=== PATIENT | female | born 1935 | race Caucasian/White ===

== ENCOUNTER 2017-02-16 08:05 | Day surgery (SDC) | payer MEDICARE, OTHER ==
--- NOTE | 2017-02-11 11:00 | HISTORY AND PHYSICAL E ---
History and Physical NAME: MEAGAN ZUNIGA : 1935 AGE: 81Y ADMITTED: 02/16/2017 ROOM: CHIEF COMPLAINT: Rectal bleeding. PLAN: Flexible sig. HISTORY: Patient is being followed by Dr. Nassar from 2007 where she did have colonoscopy showing descending colon diverticulosis, severe, small benign polyps in the ascending colon, 3 mm. Patient did have a small polyp in the ascending colon. Patient presents with rectal bleeding. Another colonoscopy in 2010 showed adenoma polyp, ascending colon. Patient did have colonoscopy in 2010 showing no malignancy, sessile polyp resected by biopsy, sigmoid diverticulosis. CEA is normal. ALLERGIES: 1. CODEINE. 2. ASPIRIN. PAST SURGERY: Hysterectomy, , thyroidectomy, tonsillectomy as a child. PHYSICAL EXAMINATION: VITAL SIGNS: Blood pressure is 130/70, pulse 80, respirations 18, temp is 98. HEENT: Normal. NECK: Supple. LUNGS: Clear. ABDOMEN: Soft. NEUROLOGIC: Exam is negative. CONCLUSION: Rectal bleeding. PLAN: Flexible sig scheduled for 02/16/2017. DICTATING PHYSICIAN: TERESA MASTERS M.D. [id number] PHY#: [id number] ID: [id number] JOB#: [id number] ACCT: [id number] cc:TERESA MASTERS M.D. >
[~2017-02-16 08:05] MED LIST: EPINEPHRINE INJ 1 MG/10 ML DISP.SYRIN ONE; FLUMAZENIL INJ 0.5 MG/5 ML VIAL ONE; GLUCAGON,HUMAN RECOMB 1 MG INJ ONE; GLYCOPYRROLATE INJ 0.4 MG/2 ML VIAL ONE; LIDOCAINE 2% JELLY 30 ML TUBE ONE; MIDAZOLAM 2 MG/2 ML INJ ONE; NALOXONE HCL INJ/PF 0.4 MG/1 ML SDV ONE; ONDANSETRON HCL INJ/PF 4 MG/2 ML SDV ONE
[2017-02-16] MEDS: FENTANYL CITRATE INJ/PF 100 MCG/2 ML AMPUL ONE ×2 (09:08→09:10)
[2017-02-16 10:14] LABS: ABSOLUTE BASOPHILS # (AUTO) 0.1 10^3/uL (0.0-0.2); ABSOLUTE EOSINOPHILS # (AUTO) 0.1 10^3/uL (0.0-0.6); ABSOLUTE LYMPHOCYTES (AUTO) 0.8 10^3/uL (0.5-4.7); ABSOLUTE MONOCYTES (AUTO) 0.4 10^3/uL (0.1-1.4); BASOPHILS % (AUTO) 2.3 % (0-2); EOSINOPHILS % (AUTO) 4.1 % (0-6); HEMATOCRIT 34.3 % (36.0-47.0); HEMOGLOBIN 11.8 g/dL (12.0-15.5); HGB HCT DIFFERENCE 1.1; LYMPHOCYTES % (AUTO) 23.5 % (13-45); MEAN CORPUSCULAR HEMOGLOBIN 32.4 pg (27.0-33.4); MEAN CORPUSCULAR HGB CONC 34.5 g/dL (32.0-36.0); MEAN CORPUSCULAR VOLUME 94 fl (80-97); MONOCYTES % (AUTO) 12.6 % (3-13); RED BLOOD COUNT 3.65 10^6/uL (3.72-5.28); RED CELL DISTRIBUTION WIDTH 12.6 % (11.5-14.0); SEGMENTED NEUTROPHILS % (AUTO) 57.5 % (42-78); WHITE BLOOD COUNT 3.4 10^3/uL (4.0-10.5)
[2017-02-16 10:16] VITALS: BP 105/78
[2017-02-16] MEDS ORDERED: GLUCAGON,HUMAN RECOMB 1 MG INJ ONE (10:56)
--- NOTE | 2017-02-16 12:34 | DISCHARGE SUMMARY E ---
Discharge Summary NAME: MEAGAN ZUNIGA : 1935 AGE: 81Y ADMITTED: 02/16/2017 DISCHARGED: 02/16/2017 SUMMARY: Patient is 81, presented with rectal bleeding. She did have previous colonoscopy showing adenoma polyp in the ascending colon, 2 mm, removed by biopsy. Today's flexible sig shows no active bleeding, external hemorrhoids, diverticulosis in the sigmoid and descending colon. DISCHARGE PLAN: 1. Soft diet. 2. Baseline CBC and CEA. 3. Follow-up office visit in the next few days. DICTATING PHYSICIAN: TERESA MASTERS M.D. [id number] PHY#: [id number] ID: [id number] JOB#: [id number] ACCT: [id number] cc:TERESA MASTERS M.D. >
--- NOTE | 2017-02-16 12:37 | OPERATIVE REPORT E ---
Operative Report NAME: MEAGAN ZUNIGA : 1935 AGE: 81Y DATE OF SURGERY: 02/16/2017 ROOM: PREOPERATIVE DIAGNOSIS: Rectal bleeding. POSTOPERATIVE DIAGNOSES: 1. External hemorrhoids most likely the cause of the bleed, mild, multiple. 2. Sigmoid diverticulosis. OPERATION: Flexible sig. SURGEON: TERESA MASTERS M.D. ANESTHESIA: Patient was given 2 Versed and 50 fentanyl. PROCEDURE: Rectal exam: External hemorrhoids. Most likely the cause of the bleed. Rectum normal otherwise. Sigmoid diverticulosis. Descending colon diverticulosis. There was a solid brown stool in the descending colon. No active bleeding. No polyps were seen during the flexible. PLAN: Assurance. Soft diet. Watch hemorrhoids. Watch diverticulosis. Baseline CBC and CEA. DICTATING PHYSICIAN: TERESA MASTERS M.D. [id number] PHY#: [id number] ID: [id number] JOB#: [id number] ACCT: [id number] cc:TERESA MASTERS M.D. >
== END 2017-02-16 10:15 | disposition home or self-care (01) ==
LOC: END 08:05
PROVIDERS: ATTEND Specialist
PROC: 0DJD8ZZ Inspection of Lower Intestinal Tract, Via Natural or Artificial Opening Endoscopic (ICD-10-PCS; principal; 2017-02-16 09:00)
DX: K57.30 Diverticulosis of large intestine without perforation or abscess without bleeding (principal); K62.5 Hemorrhage of anus and rectum; K64.4 Residual hemorrhoidal skin tags; R97.0 Elevated carcinoembryonic antigen [CEA]; Z88.5 Allergy status to narcotic agent; Z88.6 Allergy status to analgesic agent
CPT/HCPCS: 45330; 36415; 82378; 85025; J2250; J3010; J1610; J2405; J0171; J2310; J3490

== ENCOUNTER 2017-12-28 15:18 | Inpatient (IN) | payer MEDICARE, OTHER ==
[2017-12-28] MEDS ORDERED: NORMAL SALINE 1000 ML 500 ML IV PRN (16:30)
--- NOTE | 2017-12-28 16:31 | ER Document Report ---
ED Medical Screen (RME) - General Information source: Patient TRAVEL OUTSIDE OF THE [place] IN LAST 30 DAYS: No <AKIN MITCHELL - Last Filed: 12/28/17 16:30> - HPI Patient complains to provider of: feeling unwell Onset: Other - 82-year-old female presents for evaluation of feeling unwell, she recently had a bladder removal for bladder cancer and a diverting cystostomy to an ostomy on her abdomen which was performed at [facility] she was admitted to the hospital for abnormal electrolytes and was discharged last Wednesday, 4 days prior, she notes that over the last 2 days she is just felt somewhat unwell. She denies any emesis, she denies any constipation or diarrhea she does note some fevers at home as well as a cough some shortness of breath and some generalized fatigue she has never felt like this before. Nothing is seen to make it any better nothing seemed to make it any worse. <JUNG LINDSAY - Last Filed: 12/29/17 04:37> - General Chief Complaint: Weakness Stated Complaint: WEAKNESS Time Seen by Provider: 12/28/17 16:29 Notes: 52 years old female presents today with general malaise and fatigue weakness since yesterday. Recently she had a complete resection of urinary bladder, due to bladder cancer. Subsequently she was admitted for. Of time for hyponatremia and hypokalemia. Discharge last week from the hospital. (AKIN MITCHELL) - Related Data Allergies/Adverse Reactions: aspirin [Aspirin] Allergy (Intermediate, Verified 02/16/17 08:16) lowers iron codeine [Codeine] Allergy (Intermediate, Verified 02/16/17 08:16) lowers iron Past Medical History - Past Medical History Cardiac Medical History: Reports: Hx Hypertension Denies: Hx Coronary Artery Disease, Hx Heart Attack Pulmonary Medical History: Denies: Hx Asthma, Hx Bronchitis, Hx COPD, Hx Pneumonia Neurological Medical History: Denies: Hx Cerebrovascular Accident, Hx Seizures Musculoskeltal Medical History: Reports Hx Arthritis Past Surgical History: Denies: Hx Hysterectomy, Hx Pacemaker - Immunizations Hx Diphtheria, Pertussis, Tetanus Vaccination: No <AKIN MITCHELL - Last Filed: 12/28/17 16:30> - General Information source: Patient - Social History Cigarette use (# per day): No Chew tobacco use (# tins/day): No Frequency of alcohol use: None Drug Abuse: None <JUNG LINDSAY Blanca - Last Filed: 12/29/17 04:37> Review of Systems - Review of Systems -: Yes All other systems reviewed and negative <JUNG LINDSAY Blanca - Last Filed: 12/29/17 04:37> Physical Exam - General General appearance: Appears well In distress: None - HEENT Head: Normocephalic Eyes: Normal Conjunctiva: Normal - Respiratory Respiratory status: No respiratory distress Chest status: Nontender Breath sounds: Normal Chest palpation: Normal - Cardiovascular Rhythm: Regular Heart sounds: Normal auscultation Murmur: No - Abdominal Inspection: Other - The abdomen is rounded, and the right lower quadrant there is a pink Miriam stoma with active drainage of urine in the bag which is relatively clear Distension: No distension Bowel sounds: Normal Tenderness: Nontender - Back Back: Normal - Extremities General upper extremity: Normal inspection General lower extremity: Normal inspection Shoulder: Normal - Neurological Neuro grossly intact: Yes Cognition: Normal Orientation: AAOx4 - Skin Skin Temperature: Warm <JUNG LINDSAY F - Last Filed: 12/29/17 04:37> - Vital signs Vitals: Temp Pulse Resp BP Pulse Ox 100.0 F 99 18 152/51 H 96 12/28/17 15:41 12/28/17 15:41 12/28/17 15:41 12/28/17 15:41 12/28/17 15:41 Course <AKIN MITCHELL - Last Filed: 12/28/17 16:30> - Laboratory Result Diagrams: 12/28/17 18:20 12/28/17 17:02 <JUNG LINDSAY - Last Filed: 12/29/17 04:37> - Re-evaluation Re-evalutation: 12/29/17 04:34 82-year-old female with a history of bladder resection at [facility] for cancer presents for evaluation of generalized feeling of unwell. She previously been hospitalized for abnormal electrolytes and says this feels somewhat similar to that though not quite as bad. She also has had fevers at home or that time. Her urine output is continued to be normal during that time she denies any abdominal pain diarrhea constipation or emesis. She has had a cough and some shortness of breath. Chest x-ray does demonstrate what may be an infiltrate, her urinalysis is difficult to interpret it does come from a diverted ostomy. Laboratory evaluation is nondiagnostic, I have contacted personal development mentor urology attending at [facility] who at this time declines acceptance of patient in transport for treatment as he believes that her urine is not infected her creatinine is improved and her electrolytes are improved as well. Spoke to hospitalist at [facility] on-call Mejia Wahl who notes that patient without urinary tract infection or surgical complication likely is safe to be treated as an inpatient and [place], discussed case with on-call hospitalist Dr. Ricks who declines admission at this time for concern that patient may have a relation to her previous surgery. Because of the prolonged wait. For likely transport after Dr. Holguin who accepted patient for consideration of transport to floor bed have discussed again case with on-call hospitalist Dr. Thayer who agrees to admit the patient while awaiting transfer. During this time initiated treatment for possible aspiration pneumonia which in addition will treat urinary tract infection if positive. We will continue to monitor this patient in the emergency department until she is admitted or transported. At this time she is hemodynamically stable and overall well appearing. ( JUNG LINDSAY) - Vital Signs Vital signs: Temp Pulse Resp BP Pulse Ox 98.7 F 99 26 H 144/54 H 100 12/28/17 21:53 12/28/17 15:41 12/29/17 04:01 12/29/17 04:00 12/29/17 04:01 - Laboratory Laboratory results interpreted by me: 12/28/17 12/28/17 12/28/17 17:02 17:02 17:05 RBC Hgb Hct Plt Count Seg Neutrophils % Lymphocytes % Sodium 131.4 L Chloride 95 L Est GFR ( Amer) 58 L Est GFR (Non-Af Amer) 48 L Calcium 8.2 L Albumin 3.4 L TSH 6.25 H Urine Blood SMALL H Urine Nitrite POSITIVE H Ur Leukocyte Esterase TRACE H 12/28/17 18:20 RBC 3.02 L Hgb 9.6 L Hct 28.4 L Plt Count 598 H Seg Neutrophils % 79.6 H Lymphocytes % 6.7 L Sodium Chloride Est GFR ( Amer) Est GFR (Non-Af Amer) Calcium Albumin TSH Urine Blood Urine Nitrite Ur Leukocyte Esterase
--- NOTE | 2017-12-28 17:26 | RADIOLOGY REPORT (SQ) ---
EXAM DESCRIPTION: CHEST 2 VIEWS COMPLETED DATE/TIME: 12/28/2017 5:12 pm REASON FOR STUDY: cough COMPARISON: None. EXAM PARAMETERS: NUMBER OF VIEWS: two views TECHNIQUE: Digital Frontal and Lateral radiographic views of the chest acquired. RADIATION DOSE: NA LIMITATIONS: none FINDINGS: LUNGS AND PLEURA: Faint density in the right upper lobe situated between the anterior end of the 2nd and 3rd rib. Mild interstitial changes. No large pleural effusion. No pneumothorax. MEDIASTINUM AND HILAR STRUCTURES: No masses or contour abnormalities. HEART AND VASCULAR STRUCTURES: Heart normal size. No evidence for failure. BONES: No acute findings. HARDWARE: None in the chest. OTHER: Large hiatal hernia with intrathoracic stomach. IMPRESSION: 1. FAINT DENSITY IN THE RIGHT UPPER LOBE, POSSIBLY ARTIFACT DUE TO OVERLYING TISSUE. CANNOT EXCLUDE UNDERLYING PARENCHYMAL LESION. MAY CONSIDER FOLLOW-UP CT OF THE CHEST FOR MORE COMPLETE EVALUATION. 2. LARGE HIATAL HERNIA WITH INTRATHORACIC STOMACH. TECHNICAL DOCUMENTATION: JOB ID: [id number] [employer]- All Rights Reserved Reading location - IP/workstation name: [email or web address]
[2017-12-28 17:36] LABS: APPEARANCE,URINE SLIGHTLY-CLOUDY; BILIRUBIN,URINE NEGATIVE (NEGATIVE); COLOR,URINE YELLOW; GLUCOSE, URINE NEGATIVE (NEGATIVE); KETONES,URINE NEGATIVE (NEGATIVE); LEUKOCYTE ESTERASE,URINE TRACE (NEGATIVE); NITRITE,URINE POSITIVE (NEGATIVE); PROTEIN,URINE NEGATIVE (NEGATIVE); URINE SPECIFIC GRAVITY 1.009; UROBILINOGEN,URINE NEGATIVE mg/dL (<2.0)
[2017-12-28 17:58] LABS: ALANINE AMINOTRANSFERASE 16 U/L (9-52); ALBUMIN 3.4 g/dL (3.5-5.0); ALKALINE PHOSPHATASE 57 U/L (38-126); ANION GAP 7 (5-19); ASPARTATE AMINO TRANSFERASE 30 U/L (14-36); BILIRUBIN,DIRECT 0.3 mg/dL (0.0-0.4); BILIRUBIN,TOTAL 0.3 mg/dL (0.2-1.3); BLOOD UREA NITROGEN 20 mg/dL (7-20); CALCIUM 8.2 mg/dL (8.4-10.2); CARBON DIOXIDE 29 mmol/L (22-30); CHLORIDE 95 mmol/L (98-107); GLUCOSE 102 mg/dL (75-110); POTASSIUM 4.1 mmol/L (3.6-5.0); SODIUM 131.4 mmol/L (137-145); TOTAL PROTEIN 7.1 g/dL (6.3-8.2)
[2017-12-28 18:33] LABS: ABSOLUTE BASOPHILS # (AUTO) 0.1 10^3/uL (0.0-0.2); ABSOLUTE EOSINOPHILS # (AUTO) 0.1 10^3/uL (0.0-0.6); ABSOLUTE LYMPHOCYTES (AUTO) 0.6 10^3/uL (0.5-4.7); ABSOLUTE MONOCYTES (AUTO) 1.2 10^3/uL (0.1-1.4); ABSOLUTE NEUT (AUTO) 7.5 10^3/uL (1.7-8.2); BASOPHILS % (AUTO) 0.7 % (0-2); EOSINOPHILS % (AUTO) 0.6 % (0-6); HEMATOCRIT 28.4 % (36.0-47.0); HEMOGLOBIN 9.6 g/dL (12.0-15.5); LYMPHOCYTES % (AUTO) 6.7 % (13-45); MEAN CORPUSCULAR HEMOGLOBIN 31.7 pg (27.0-33.4); MEAN CORPUSCULAR HGB CONC 33.7 g/dL (32.0-36.0); MEAN CORPUSCULAR VOLUME 94 fl (80-97); MONOCYTES % (AUTO) 12.4 % (3-13); PLATELET COUNT 598 10^3/uL (150-450); RED BLOOD COUNT 3.02 10^6/uL (3.72-5.28); RED CELL DISTRIBUTION WIDTH 13.5 % (11.5-14.0); SEGMENTED NEUTROPHILS % (AUTO) 79.6 % (42-78); TOTAL CELLS COUNTED % (AUTO) 100 %; WHITE BLOOD COUNT 9.4 10^3/uL (4.0-10.5)
[2017-12-28] MEDS ORDERED: AMPICILLIN SOD/SULBACTAM 3 GM VIAL IV ONE (21:02)
[2017-12-28] MEDS ORDERED: CEFTRIAXONE INJ 1000 MG VIAL IV ONE (21:15)
[2017-12-29] MEDS ORDERED: ZOLPIDEM TARTRATE 5 MG TABLET PO PRN (00:46)
[2017-12-29] MEDS ORDERED: ONDANSETRON HCL INJ/PF 4 MG/2 ML SDV IV PRN (00:46)
[2017-12-29] MEDS ORDERED: MAGNESIUM HYDROXIDE SUSP 30 ML UDCUP PO PRN (00:46)
[2017-12-29] MEDS ORDERED: ACETAMINOPHEN 650 MG SUPP.RECT PR PRN (00:46)
[2017-12-29] MEDS ORDERED: AZITHROMYCIN INJ 500 MG VIAL IV ONE (01:11)
[2017-12-29] MEDS ORDERED: IPRATROPIUM/ALBUTEROL 0.5-2.5 MG/3 ML AMPUL NEB PRN (01:12)
--- NOTE | 2017-12-29 01:32 | PDOC H&P ---
History of Present Illness Admission Date/PCP: 12/29/2017 FAVIO MILLAN MD Patient complains of: I have been feeling bad History of Present Illness: MEAGAN ZUNIGA is a 82 year old female with history of hypertension, hypothyroidism and dyslipidemia as well as bladder cancer status post recent bladder resection and diverting ileostomy at [facility] at [place] from 12/13 till . She had a stent removal on 12/21 and was noted to be hypotensive with electrolyte disturbances when she was admitted again and discharged on 2017. She has been doing fairly well for a few days however since yesterday she felt general malaise and fatigue and admitted to cough with expectoration of whitish sputum with no wheezing or significant dyspnea. She denies any chest pain or palpitations. She had a bowel movement today that was well formed. She did not have reported fever or chills at home. No headache, dizziness or blurred vision. No nausea vomiting or abdominal pain. Upon presentation to the emergency room her blood pressure was 152/51 with a pulse of 99 respiratory rate of 18 and temperature of 100 with a pulse oximetry of 96% on room air. Labs revealed a anemia with hemoglobin of 9.6 and hematocrit of 28.4 with no recent levels to compare with since January of last year at which time hemoglobin was 11.8 and hematocrit 34.3. Platelets were 598 with segmented neutrophilia with hyponatremia was revealed in her CMP with hypochloremia and her GFR was 48. Lactic acid was 0.7 and calcium 8.2 with albumin 3.4. Urinalysis showed only 11 WBCs however with positive nitrite and trace leukocyte esterase. Her chest x-ray revealed right upper lobe density that could be due to confluence of shadows. The patient was given IV Unasyn and a gram of Rocephin as well as ordered IV Zithromax. Contact was made with [facility] with her urologist, based on her recent couple of admissions during the last couple of weeks especially due to her recent early UTI status post urologic surgery as mentioned above and she was accepted for transfer however there were no beds available and they were not expected in a couple of days. She was thought to be stable for admission here for further management of her UTI and possible pneumonia. Past Medical History Past Medical History: Hypertension, hypothyroidism, dyslipidemia, bladder cancer status post bladder resection and diverting ileostomy and diverticulosis. Cardiac Medical History: Reports: Hypertension Denies: Coronary Artery Disease, Myocardial Infarction Pulmonary Medical History: Denies: Asthma, Bronchitis, Chronic Obstructive Pulmonary Disease (COPD), Pneumonia Neurological Medical History: Denies: Seizures Musculoskeltal Medical History: Reports: Arthritis Hematology: Reports: Anemia Past Surgical History Past Surgical History: Reports: Section, Hysterectomy, Other - Bladder resection and diverting ileostomy, stent removal. Denies: Pacemaker Social History Smoking Status: Never Smoker Frequency of Alcohol Use: None Hx Recreational Drug Use: No Family History Family History: CAD, CVA, Malignancy Parental Family History Reviewed: Yes Children Family History Reviewed: Yes Sibling(s) Family History Reviewed.: Yes Medication/Allergy Home Medications: Amlodipine Besylate [Norvasc 5 mg Tablet] 5 mg PO DAILY 04/08/11 Levothyroxine Sodium [Levoxyl] 0.075 mcg PO DAILY 04/08/11 Lisinopril/Hydrochlorothiazide [Zestoretic 10-12.5 mg Tablet] 1 tab PO BID 04/08 Sennosides/Docusate 8.6-50 mg [Senna Plus Tablet] 1 tab PO DAILY 04/08/11 Atorvastatin Calcium [Lipitor 40 mg Tablet] 40 mg PO QHS 02/15/17 Calcium Carbonate [Calcium] 500 mg PO DAILY 02/15/17 Multivitamin [Multivitamins] 1 each PO DAILY 02/15/17 Enoxaparin Sodium [Lovenox] 30 mg SQ 12/28/17 Allergies/Adverse Reactions: aspirin [Aspirin] Allergy (Intermediate, Verified 02/16/17 08:16) lowers iron codeine [Codeine] Allergy (Intermediate, Verified 02/16/17 08:16) lowers iron Review of Systems Review of Systems: As per history of present illness. All pertinent systems were reviewed above. Constitutional, HEENT, cardiovascular, respiratory, GI, , musculoskeletal, neuro, psychiatric, endocrine, integumentary and hematologic systems were reviewed and are otherwise negative/unremarkable except for positive findings mentioned above in the HPI. Physical Exam Vital Signs: Temp Pulse Resp BP Pulse Ox 98.7 F 99 19 164/64 H 95 12/28/17 21:53 12/28/17 15:41 12/28/17 21:01 12/28/17 21:01 12/28/17 21:01 Intake & Output 12/27/17 12/28/17 12/29/17 06:59 06:59 06:59 Intake Total 500 Output Total 375 Balance 125 Weight 81.6 kg Exam: Generally: Very pleasant elderly female in no acute distress Vital signs-as listed Head - atraumatic, normocephalic. Pupils - equal, round and reactive to light and accommodation. Extraocular movements are intact. No scleral icterus. Oropharynx - moist mucous membranes and tongue. No pharyngeal erythema or exudate. Neck - supple. No JVD. Carotid pulses 2+ bilaterally. No carotid bruits. No palpable thyromegaly or lymphadenopathy. Cardiovascular - regular rate and rhythm. Normal S1 and S2. No murmurs, gallops or rubs. Lungs - clear to auscultation bilaterally. Abdomen - soft and nontender. Ileostomy bag in place, positive bowel sounds. No palpable organomegaly or masses. Extremities - no pitting edema, clubbing or cyanosis. Neuro - grossly non-focal. Skin - no rashes. Breast, pelvic and rectal - deferred Results Laboratory Results: 12/28/17 18:20 12/28/17 17:02 12/28/17 12/28/17 12/28/17 17:02 17:02 17:05 WBC Cancelled RBC Cancelled Hgb Cancelled Hct Cancelled MCV Cancelled MCH Cancelled MCHC Cancelled RDW Cancelled Plt Count Cancelled Seg Neutrophils % Cancelled Lymphocytes % Cancelled Monocytes % Cancelled Eosinophils % Cancelled Basophils % Cancelled Absolute Neutrophils Cancelled Absolute Lymphocytes Cancelled Absolute Monocytes Cancelled Absolute Eosinophils Cancelled Absolute Basophils Cancelled Sodium 131.4 L Potassium 4.1 Chloride 95 L Carbon Dioxide 29 Anion Gap 7 BUN 20 Creatinine 1.09 Est GFR ( Amer) 58 L Est GFR (Non-Af Amer) 48 L Glucose 102 Lactic Acid Calcium 8.2 L Magnesium 2.0 Total Bilirubin 0.3 AST 30 ALT 16 Alkaline Phosphatase 57 Total Protein 7.1 Albumin 3.4 L Urine Color YELLOW Urine Appearance SLIGHTLY-CLOUDY Urine pH 7.0 Ur Specific Point Clear 1.009 Urine Protein NEGATIVE Urine Glucose (UA) NEGATIVE Urine Ketones NEGATIVE Urine Blood SMALL H Urine Nitrite POSITIVE H Ur Leukocyte Esterase TRACE H Urine WBC (Auto) 11 Urine RBC (Auto) 1 12/28/17 12/28/17 18:20 21:30 WBC 9.4 RBC 3.02 L Hgb 9.6 L Hct 28.4 L MCV 94 MCH 31.7 MCHC 33.7 RDW 13.5 Plt Count 598 H Seg Neutrophils % 79.6 H Lymphocytes % 6.7 L Monocytes % 12.4 Eosinophils % 0.6 Basophils % 0.7 Absolute Neutrophils 7.5 Absolute Lymphocytes 0.6 Absolute Monocytes 1.2 Absolute Eosinophils 0.1 Absolute Basophils 0.1 Sodium Potassium Chloride Carbon Dioxide Anion Gap BUN Creatinine Est GFR ( Amer) Est GFR (Non-Af Amer) Glucose Lactic Acid 0.7 Calcium Magnesium Total Bilirubin AST ALT Alkaline Phosphatase Total Protein Albumin Urine Color Urine Appearance Urine pH Ur Specific [place] Clear Urine Protein Urine Glucose (UA) Urine Ketones Urine Blood Urine Nitrite Ur Leukocyte Esterase Urine WBC (Auto) Urine RBC (Auto) Impressions: Chest X-Ray 12/28/17 16:29 IMPRESSION: 1. FAINT DENSITY IN THE RIGHT UPPER LOBE, POSSIBLY ARTIFACT DUE TO OVERLYING TISSUE. CANNOT EXCLUDE UNDERLYING PARENCHYMAL LESION. MAY CONSIDER FOLLOW-UP CT OF THE CHEST FOR MORE COMPLETE EVALUATION. 2. LARGE HIATAL HERNIA WITH INTRATHORACIC STOMACH. Assessment & Plan - Diagnosis (1) UTI (urinary tract infection) Qualifiers: Urinary tract infection type: site unspecified Is this a current diagnosis for this admission?: Yes Plan: The patient will be admitted to a medically monitored bed. She was placed on IV Rocephin. Urine culture will be followed as well as blood cultures. (2) Pneumonia Qualifiers: Pneumonia type: due to unspecified organism Laterality: right Lung location: upper lobe of lung Qualified Code(s): J18.1 - Lobar pneumonia, unspecified organism Is this a current diagnosis for this admission?: Yes Plan: We will obtain a chest CT to confirm her pneumonia. She was having tachypnea as well as pulse oximetry of 92% on room air in addition to her productive cough. I believe that this is still community-acquired pneumonia and do not suspect healthcare associated pneumonia despite her recent hospitalization. Therefore for now we will place her on IV Rocephin and Zithromax, obtain sputum Gram stain culture and sensitivity in addition to following blood cultures. She will be placed on Mucinex and as needed duo nebs (3) Hypothyroidism Is this a current diagnosis for this admission?: Yes Plan: Synthroid will be continued and TSH will be checked (4) Hypertension Is this a current diagnosis for this admission?: Yes Plan: We will continue Norvasc and Zestoretic (5) Dyslipidemia Is this a current diagnosis for this admission?: Yes Plan: We will continue statin therapy (6) Bladder cancer Is this a current diagnosis for this admission?: Yes Plan: She is status post urinary cystectomy and diversion ileostomy. Will obtain records from [facility]. (7) DVT prophylaxis Is this a current diagnosis for this admission?: Yes Plan: Subcutaneous Lovenox - Plan Summary Plan Summary: The plan of care was discussed in details with the patient. I answered all questions. The patient agreed to proceed with the above-mentioned plan. The patient is presumably full code. This note was created by [email or web address] software and may contain typo errors that may have not been proofread.
[2017-12-29] MEDS: NORMAL SALINE 1000 ML 1,000 ML IV PRN ×2 (01:35→11:52)
[2017-12-29] MEDS: LEVOTHYROXINE SODIUM 0.075 MG TABLET PO SCH (07:54)
[2017-12-29] MEDS ORDERED: CEFTRIAXONE SODIUM 2,000 MG in DEXTROSE 5%-WATER 100 ML IV SCH (10:00)
[2017-12-29] MEDS: SENNOSIDES/DOCUSATE 8.6-50 MG 1 EACH TABLET PO SCH (11:30)
[2017-12-29] MEDS: AMLODIPINE BESYLATE 5 MG TABLET PO SCH (11:30)
[2017-12-29] MEDS: MULTIVITAMIN TABLET PO SCH (11:32)
[2017-12-29] MEDS: ENOXAPARIN SODIUM INJ 40 MG/0.4 ML DISP.SYRIN SUBCUT SCH (11:33)
[2017-12-29] MEDS: GUAIFENESIN 600 MG TABLET.SA PO SCH ×2 (11:33→22:07)
[2017-12-29] MEDS: CALCIUM CARBONATE 500 MG TABLET PO SCH (11:34)
[2017-12-29] MEDS: LISINOPRIL 10 MG TABLET PO SCH ×2 (11:34→18:54)
[2017-12-29] MEDS: HYDROCHLOROTHIAZIDE 12.5 MG TABLET PO SCH ×2 (11:44→18:57)
--- NOTE | 2017-12-29 17:08 | Progress Note ---
Provider Note Provider Note: She is an 82-year-old white female admitted with history of feeling weak and short of breath without any chest pain or palpitation history. Initial vitals shows oxygen saturation of 96%. Additional labs show a hemoglobin of 11.8 with a normal lactic. Patient was given Unasyn and Rocephin. Patient follows her urologist in [place]. She has had a hysterectomy bilateral resection stents removed. Initial evaluation on chest x-ray showed faint density in the right upper lobe question artifact versus a lesion recommendations to proceed with further evaluation by doing a CT scan of the chest. He is admitted for UTI and given started on IV Rocephin culture and sensitivities pending. She was also started on IV Rocephin and Zithromax for presumed pneumonia. we will repeat chest xray again and if positive we will do ct chest without iv contrast.
[2017-12-29 18:07] LABS: ALANINE AMINOTRANSFERASE 15 U/L (9-52); ALBUMIN 2.6 g/dL (3.5-5.0); ALKALINE PHOSPHATASE 44 U/L (38-126); ANION GAP 8 (5-19); ASPARTATE AMINO TRANSFERASE 21 U/L (14-36); BILIRUBIN,DIRECT 0.3 mg/dL (0.0-0.4); BILIRUBIN,TOTAL 0.3 mg/dL (0.2-1.3); BLOOD UREA NITROGEN 20 mg/dL (7-20); CALCIUM 8.3 mg/dL (8.4-10.2); CARBON DIOXIDE 25 mmol/L (22-30); CHLORIDE 100 mmol/L (98-107); GLUCOSE 122 mg/dL (75-110); PHOSPHORUS 3.6 mg/dL (2.5-4.5); POTASSIUM 4.8 mmol/L (3.6-5.0); SODIUM 132.5 mmol/L (137-145); TOTAL PROTEIN 5.5 g/dL (6.3-8.2)
[2017-12-29] MEDS ORDERED: CEFTRIAXONE 2 GM/D5W RTU 2 GM/50 ML RTUPB IV SCH (22:00)
[2017-12-29] MEDS: ATORVASTATIN CALCIUM 40 MG TABLET PO SCH (22:07)
[2017-12-30 06:11] LABS: ABSOLUTE EOSINOPHILS # (AUTO) 0.1 10^3/uL (0.0-0.6); ABSOLUTE LYMPHOCYTES (AUTO) 0.4 10^3/uL (0.5-4.7); ABSOLUTE MONOCYTES (AUTO) 0.4 10^3/uL (0.1-1.4); ABSOLUTE NEUT (AUTO) 4.8 10^3/uL (1.7-8.2); BASOPHILS % (AUTO) 0.5 % (0-2); EOSINOPHILS % (AUTO) 2.5 % (0-6); HEMATOCRIT 22.5 % (36.0-47.0); LYMPHOCYTES % (AUTO) 7.7 % (13-45); MEAN CORPUSCULAR HEMOGLOBIN 31.8 pg (27.0-33.4); MEAN CORPUSCULAR HGB CONC 33.9 g/dL (32.0-36.0); MEAN CORPUSCULAR VOLUME 94 fl (80-97); MONOCYTES % (AUTO) 7.1 % (3-13); PLATELET COUNT 421 10^3/uL (150-450); RED CELL DISTRIBUTION WIDTH 13.4 % (11.5-14.0); SEGMENTED NEUTROPHILS % (AUTO) 82.2 % (42-78); TOTAL CELLS COUNTED % (AUTO) 100 %; WHITE BLOOD COUNT 5.8 10^3/uL (4.0-10.5)
[2017-12-30 06:12] LABS: HEMOGLOBIN 7.6 g/dL (12.0-15.5)
[2017-12-30 06:39] LABS: ANION GAP 8 (5-19); BLOOD UREA NITROGEN 17 mg/dL (7-20); CARBON DIOXIDE 26 mmol/L (22-30); CHLORIDE 101 mmol/L (98-107); GLUCOSE 85 mg/dL (75-110); POTASSIUM 4.5 mmol/L (3.6-5.0); SODIUM 134.5 mmol/L (137-145)
[2017-12-30 06:45] LABS: ABSOLUTE EOSINOPHILS # (AUTO) 0.1 10^3/uL (0.0-0.6); ABSOLUTE LYMPHOCYTES (AUTO) 0.3 10^3/uL (0.5-4.7); ABSOLUTE MONOCYTES (AUTO) 0.4 10^3/uL (0.1-1.4); ABSOLUTE NEUT (AUTO) 4.7 10^3/uL (1.7-8.2); BASOPHILS % (AUTO) 0.3 % (0-2); EOSINOPHILS % (AUTO) 2.3 % (0-6); HEMATOCRIT 22.8 % (36.0-47.0); LYMPHOCYTES % (AUTO) 5.1 % (13-45); MEAN CORPUSCULAR HEMOGLOBIN 31.9 pg (27.0-33.4); MEAN CORPUSCULAR HGB CONC 33.8 g/dL (32.0-36.0); MEAN CORPUSCULAR VOLUME 94 fl (80-97); MONOCYTES % (AUTO) 7.2 % (3-13); PLATELET COUNT 476 10^3/uL (150-450); RED BLOOD COUNT 2.41 10^6/uL (3.72-5.28); RED CELL DISTRIBUTION WIDTH 13.8 % (11.5-14.0); SEGMENTED NEUTROPHILS % (AUTO) 85.1 % (42-78); TOTAL CELLS COUNTED % (AUTO) 100 %; WHITE BLOOD COUNT 5.5 10^3/uL (4.0-10.5)
[2017-12-30 06:46] LABS: HEMOGLOBIN 7.7 g/dL (12.0-15.5)
[2017-12-30] MEDS ORDERED: NORMAL SALINE 250 ML IV PRN (07:46)
[2017-12-30] MEDS: LEVOTHYROXINE SODIUM 0.075 MG TABLET PO SCH (08:06)
[2017-12-30] MEDS: AMLODIPINE BESYLATE 5 MG TABLET PO SCH (09:44)
[2017-12-30] MEDS: ENOXAPARIN SODIUM INJ 40 MG/0.4 ML DISP.SYRIN SUBCUT SCH (09:45)
[2017-12-30] MEDS: CALCIUM CARBONATE 500 MG TABLET PO SCH (09:45)
[2017-12-30] MEDS: GUAIFENESIN 600 MG TABLET.SA PO SCH ×2 (09:45→22:30)
[2017-12-30] MEDS: MULTIVITAMIN TABLET PO SCH (09:45)
[2017-12-30] MEDS: SENNOSIDES/DOCUSATE 8.6-50 MG 1 EACH TABLET PO SCH (09:45)
[2017-12-30] MEDS: HYDROCHLOROTHIAZIDE 12.5 MG TABLET PO SCH ×2 (09:45→17:29)
[2017-12-30] MEDS: LISINOPRIL 10 MG TABLET PO SCH ×2 (09:47→17:30)
[2017-12-30] MEDS: PIPERACILLIN SODIUM/TAZOBACTAM 3.375 GM in NORMAL SALINE 100 ML IV SCH ×3 (12:28→23:57)
[2017-12-30 20:26] LABS: ABSOLUTE RETICS # 0.038 10^6/uL (0.028-0.122); RETICULOCYTE COUNT (AUTO) 1.59 % (0.66-2.85)
[2017-12-30 21:28] LABS: IRON(TIBC) < 10.1 ug/dL (37-170)
[2017-12-30] MEDS: ATORVASTATIN CALCIUM 40 MG TABLET PO SCH (22:30)
--- NOTE | 2017-12-30 23:38 | PDOC PROGRESS REPORT ---
Subjective Progress Note for:: 12/30/17 Subjective:: Patient is a 82-year-old admitted with not feeling well. Due to patient's urological history patient admitted for urinary tract infection , pneumonia, hyperthyroidism, anemia, and hypertension. Patient has been continued on Pipracil and tazobactam for her infection. Patient is on duo nebs, continued on her antihypertensive therapy with amlodipine lisinopril, hydrochlorothiazide. Patient is continued on her atorvastatin for dyslipidemia. Vitals have been stable blood pressure has been high will increase patient's amlodipine to 10 mg. Received report from chilango BREWER about patient's hemoglobin dropping to 7.6. Stat PRBC type and cross was done to start patient on 1 unit. Rounds in the afternoon discussed with patient about need for transfusion as her hemoglobin has dropped down to 7.6. Patient states that she has always had an iron infusion and that that helped her numbers. Patient recalls describes how her primary care physician started giving her iron infusion and transitioned her to p.o. iron pills. When asked when she received her iron infusion last patient states it was 1991 and 1992. Patient does not recall seeing a laminating machine tender or having a bone biopsy for anemia evaluation. Past with patient that it is advisable for the patient to receive 1 unit of PRBC. We will transfuse once iron studies have been collected. Suspect multifactorial anemia, anemia of chronic disease. Patient states her colonoscopy was okay the last time she had that she does not recall when exactly it was . Reason For Visit: PNEMONIA, UTI Physical Exam Vital Signs: Temp Pulse Resp BP Pulse Ox 98.9 F 94 20 164/63 H 96 12/30/17 19:30 12/30/17 19:30 12/30/17 19:30 12/30/17 19:30 12/30/17 19:30 Intake & Output 12/29/17 12/30/17 12/31/17 06:59 06:59 06:59 Intake Total 8956 400 Output Total 1700 200 Balance 7256 200 Weight 179 lb 14.355 oz 419 lb 8.635 oz General appearance: PRESENT: no acute distress, cooperative Eye exam: PRESENT: EOMI Ear exam: PRESENT: normal external ear exam Neck exam: ABSENT: carotid bruit Respiratory exam: PRESENT: clear to auscultation susy. ABSENT: wheezes Cardiovascular exam: PRESENT: RRR Pulses: PRESENT: +1 pedal pulses bilateral GI/Abdominal exam: PRESENT: normal bowel sounds, soft. ABSENT: distended, tenderness Rectal exam: PRESENT: other - Digital rectal exam done by myself. Stool card sent to the lab for developer and occult blood testing result which showed negative for any blood. Patient does state that she has intermittent bright red blood per rectum.. ABSENT: decreased rectal tone, fecal impaction Neurological exam: PRESENT: alert, awake, oriented to person, oriented to place , oriented to time, CN II-XII grossly intact, motor sensory deficit Psychiatric exam: PRESENT: appropriate affect, normal mood. ABSENT: agitated, anxious Results Laboratory Results: 12/30/17 06:31 12/30/17 05:03 12/30/17 12/30/17 12/30/17 05:03 05:03 06:31 WBC 5.8 5.5 RBC 2.40 L 2.41 L Hgb 7.6 L 7.7 L Hct 22.5 L 22.8 L MCV 94 94 MCH 31.8 31.9 MCHC 33.9 33.8 RDW 13.4 13.8 Plt Count 421 476 H Seg Neutrophils % 82.2 H 85.1 H Lymphocytes % 7.7 L 5.1 L Monocytes % 7.1 7.2 Eosinophils % 2.5 2.3 Basophils % 0.5 0.3 Absolute Neutrophils 4.8 4.7 Absolute Lymphocytes 0.4 L 0.3 L Absolute Monocytes 0.4 0.4 Absolute Eosinophils 0.1 0.1 Absolute Basophils 0.0 0.0 Retic Count (auto) Absolute Retic Sodium 134.5 L Potassium 4.5 Chloride 101 Carbon Dioxide 26 Anion Gap 8 BUN 17 Creatinine 0.97 Est GFR ( Amer) > 60 Est GFR (Non-Af Amer) 55 L Glucose 85 Calcium 8.0 L Iron TIBC % Saturation Ferritin Vitamin B12 Folate Stool Occult Blood Blood Type Antibody Screen 12/30/17 12/30/17 12/30/17 06:31 06:31 08:39 WBC RBC Hgb Hct MCV MCH MCHC RDW Plt Count Seg Neutrophils % Lymphocytes % Monocytes % Eosinophils % Basophils % Absolute Neutrophils Absolute Lymphocytes Absolute Monocytes Absolute Eosinophils Absolute Basophils Retic Count (auto) 1.59 Absolute Retic 0.038 Sodium Potassium Chloride Carbon Dioxide Anion Gap BUN Creatinine Est GFR ( Amer) Est GFR (Non-Af Amer) Glucose Calcium Iron < 10.1 L TIBC 227 L % Saturation UNABLE TO CALCULATE Ferritin 185.00 Vitamin B12 > 1000.0 H Folate 17.80 Stool Occult Blood Blood Type O POSITIVE Antibody Screen NEGATIVE 12/30/17 19:30 WBC RBC Hgb Hct MCV MCH MCHC RDW Plt Count Seg Neutrophils % Lymphocytes % Monocytes % Eosinophils % Basophils % Absolute Neutrophils Absolute Lymphocytes Absolute Monocytes Absolute Eosinophils Absolute Basophils Retic Count (auto) Absolute Retic Sodium Potassium Chloride Carbon Dioxide Anion Gap BUN Creatinine Est GFR ( Amer) Est GFR (Non-Af Amer) Glucose Calcium Iron TIBC % Saturation Ferritin Vitamin B12 Folate Stool Occult Blood NEGATIVE Blood Type Antibody Screen Impressions: Chest X-Ray 12/28/17 16:29 IMPRESSION: 1. FAINT DENSITY IN THE RIGHT UPPER LOBE, POSSIBLY ARTIFACT DUE TO OVERLYING TISSUE. CANNOT EXCLUDE UNDERLYING PARENCHYMAL LESION. MAY CONSIDER FOLLOW-UP CT OF THE CHEST FOR MORE COMPLETE EVALUATION. 2. LARGE HIATAL HERNIA WITH INTRATHORACIC STOMACH. Assessment & Plan - Diagnosis (1) Anemia Qualifiers: Anemia type: unspecified type Qualified Code(s): D64.9 - Anemia, unspecified Is this a current diagnosis for this admission?: Yes Plan: Stool occult blood negative. Patient transfused 1 unit of PRBC. Patient to be given iron infusion 1. (2) Bladder cancer Is this a current diagnosis for this admission?: Yes Plan: Being followed by urology at [facility]. (3) Hypertension Qualifiers: Hypertension type: essential hypertension Qualified Code(s): I10 - Essential (primary) hypertension Is this a current diagnosis for this admission?: Yes Plan: Amlodipine increased to 10 mg times (4) Hypothyroidism Qualifiers: Hypothyroidism type: unspecified Qualified Code(s): E03.9 - Hypothyroidism , unspecified Is this a current diagnosis for this admission?: Yes Plan: Patient's levothyroxine is continued. (5) Pneumonia Qualifiers: Pneumonia type: due to unspecified organism Laterality: right Lung location: upper lobe of lung Qualified Code(s): J18.1 - Lobar pneumonia, unspecified organism Is this a current diagnosis for this admission?: Yes Plan: Continue current antibiotic therapy. We will proceed with CT chest with contrast. (6) UTI (urinary tract infection) Qualifiers: Urinary tract infection type: site unspecified Is this a current diagnosis for this admission?: Yes
[2017-12-30] MEDS: NORMAL SALINE 1000 ML 1,000 ML IV PRN (23:59)
[2017-12-31] MEDS: PIPERACILLIN SODIUM/TAZOBACTAM 3.375 GM in NORMAL SALINE 100 ML IV SCH ×3 (05:13→18:09)
[2017-12-31 05:35] LABS: ANION GAP 6 (5-19); BLOOD UREA NITROGEN 16 mg/dL (7-20); CALCIUM 7.7 mg/dL (8.4-10.2); CARBON DIOXIDE 24 mmol/L (22-30); CHLORIDE 102 mmol/L (98-107); GLUCOSE 82 mg/dL (75-110); POTASSIUM 4.1 mmol/L (3.6-5.0); SODIUM 132.3 mmol/L (137-145)
[2017-12-31 07:26] LABS: ABSOLUTE EOSINOPHILS # (AUTO) 0.1 10^3/uL (0.0-0.6); ABSOLUTE LYMPHOCYTES (AUTO) 0.5 10^3/uL (0.5-4.7); ABSOLUTE MONOCYTES (AUTO) 0.5 10^3/uL (0.1-1.4); ABSOLUTE NEUT (AUTO) 3.8 10^3/uL (1.7-8.2); BASOPHILS % (AUTO) 0.5 % (0-2); HEMATOCRIT 21.4 % (36.0-47.0); MEAN CORPUSCULAR HEMOGLOBIN 32.5 pg (27.0-33.4); MEAN CORPUSCULAR HGB CONC 34.6 g/dL (32.0-36.0); MEAN CORPUSCULAR VOLUME 94 fl (80-97); MONOCYTES % (AUTO) 10.4 % (3-13); PLATELET COUNT 430 10^3/uL (150-450); RED BLOOD COUNT 2.28 10^6/uL (3.72-5.28); RED CELL DISTRIBUTION WIDTH 13.7 % (11.5-14.0); SEGMENTED NEUTROPHILS % (AUTO) 76.1 % (42-78); TOTAL CELLS COUNTED % (AUTO) 100 %
[2017-12-31 08:00] LABS: HEMOGLOBIN 7.4 g/dL (12.0-15.5)
[2017-12-31] MEDS: ENOXAPARIN SODIUM INJ 40 MG/0.4 ML DISP.SYRIN SUBCUT SCH (09:04)
[2017-12-31] MEDS: HYDROCHLOROTHIAZIDE 12.5 MG TABLET PO SCH ×2 (09:05→17:32)
[2017-12-31] MEDS: LEVOTHYROXINE SODIUM 0.075 MG TABLET PO SCH (09:05)
[2017-12-31] MEDS: SENNOSIDES/DOCUSATE 8.6-50 MG 1 EACH TABLET PO SCH (09:05)
[2017-12-31] MEDS: LISINOPRIL 10 MG TABLET PO SCH ×3 (09:05→18:06)
[2017-12-31] MEDS: CALCIUM CARBONATE 500 MG TABLET PO SCH (09:05)
[2017-12-31] MEDS: MULTIVITAMIN TABLET PO SCH (09:05)
[2017-12-31] MEDS: GUAIFENESIN 600 MG TABLET.SA PO SCH ×2 (09:06→21:04)
[2017-12-31] MEDS: AMLODIPINE BESYLATE 5 MG TABLET PO SCH (09:06)
[2017-12-31] MEDS ORDERED: FERRIC CARBOXYMALTOSE INJ 750 MG/15 ML VIAL IV ONE (10:00)
[2017-12-31] MEDS ORDERED: FERRIC CARBOXYMALTOSE 750 MG in NORMAL SALINE 250 ML IV ONE (10:00)
--- NOTE | 2017-12-31 14:16 | RADIOLOGY REPORT (SQ) ---
EXAM DESCRIPTION: CT CHEST WITH COMPLETED DATE/TIME: 12/31/2017 1:51 pm REASON FOR STUDY: abnormal chest xray / pt has bladder cancer h/o COMPARISON: None. TECHNIQUE: CT scan of the chest performed using helical scanning technique with dynamic intravenous contrast injection. Images reviewed with lung, soft tissue and bone windows. Reconstructed coronal and sagittal MPR images reviewed. All images stored on PACS. All CT scanners at this facility use dose modulation, iterative reconstruction, and/or weight based d osing when appropriate to reduce radiation dose to as low as reasonably achievable (ALARA). [facility]: Dose Right [facility]: CareDose [facility]: Dose Right [facility]: Teradose 4D [facility]: IngBoo CONTRAST TYPE AND DOSE: contrast/concentration: Isovue 350.00 mg/ml; Total Contrast Delivered: 80.0 ml; Total Saline Delivered: 55.0 ml RENAL FUNCTION: BUN 16 creatinine 1.02. RADIATION DOSE: CT Rad equipment meets quality standard of care and radiation dose reduction techniq ues were employed. CTDIvol: 11.3 mGy. DLP: 432 mGy-cm. . LIMITATIONS: None. FINDINGS: LUNGS AND PLEURA: Mild scarring. Faint area of ground-glass opacity in the right upper lo be measuring approximately 2 cm. 1 cm subpleural nodule in the right lower lobe. Moderate right ple ural effusion and small left pleural effusion. HILAR AND MEDIASTINAL STRUCTURES: No identified masses or abnormal nodes. HEART AND VASCULAR STRUCTURES: No aneurysm or dissection. No central pulmonary emboli. No pericardi al effusion. HARDWARE: None in the chest. UPPER ABDOMEN: Small amount of ascites. Possible left adrenal nodule. Limited exam. THYROID AND OTHER SOFT TISSUES: No masses. No adenopathy. BONES: No significant finding. OTHER: Large hiatal hernia with intrathoracic stomach. IMPRESSION: 1. MODERATE RIGHT PLEURAL EFFUSION AND SMALL LEFT PLEURAL EFFUSION. 2. 1 CM SUBPLEURAL NODULE IN THE RIGHT LOWER LOBE. 3. 2 CM FAINT AREA OF GROUND-GLASS OPACITY IN THE RIGHT UPPER LOBE, NONSPECIFIC. THIS COULD BE DUE T O ATELECTASIS, PNEUMONITIS, OR POTENTIALLY INFECTION. 4. LARGE HIATAL HERNIA WITH INTRATHORACIC STOMACH. 5. SMALL AMOUNT OF ASCITES IN THE UPPER ABDOMEN. 6. POSSIBLE LEFT ADRENAL NODULE. TECHNICAL DOCUMENTATION: JOB ID: [id number] Quality ID # [id number]: Final reports with documentation of one or more dose reduction techniques (e.g., Au tomated exposure control, adjustment of the mA and/or kV according to patient size, use of iterative reconstruction technique) 2010 [employer]- All Rights Reserved Reading location - IP/workstation name: [facility]-[email or web address]
[2017-12-31 15:07] LABS: HEMATOCRIT 25.7 % (36.0-47.0); HEMOGLOBIN 8.9 g/dL (12.0-15.5); MEAN CORPUSCULAR HGB CONC 34.5 g/dL (32.0-36.0); MEAN CORPUSCULAR VOLUME 93 fl (80-97); PLATELET COUNT 464 10^3/uL (150-450); RED BLOOD COUNT 2.77 10^6/uL (3.72-5.28); RED CELL DISTRIBUTION WIDTH 13.8 % (11.5-14.0)
[2017-12-31] MEDS: ATORVASTATIN CALCIUM 40 MG TABLET PO SCH (21:04)
--- NOTE | 2017-12-31 22:22 | PDOC PROGRESS REPORT ---
Subjective Progress Note for:: 12/31/17 Subjective:: Patient is a 82-year-old admitted with not feeling well. Due to patient's urological history patient admitted for urinary tract infection , pneumonia, hyperthyroidism, anemia, and hypertension. Patient has been continued on Pipracil and tazobactam for her infection. Patient is on duo nebs, continued on her antihypertensive therapy with amlodipine lisinopril, hydrochlorothiazide. Patient is continued on her atorvastatin for dyslipidemia. Vitals have been stable blood pressure has been high will increase patient's amlodipine to 10 mg. Received report from chilango BREWER about patient's hemoglobin dropping to 7.6. Stat PRBC type and cross was done to start patient on 1 unit. Rounds in the afternoon discussed with patient about need for transfusion as her hemoglobin has dropped down to 7.6. Patient states that she has always had an iron infusion and that that helped her numbers. Patient recalls describes how her primary care physician started giving her iron infusion and transitioned her to p.o. iron pills. When asked when she received her iron infusion last patient states it was 1991 and 1992. Patient does not recall seeing a lining scrubber or having a bone biopsy for anemia evaluation. Past with patient that it is advisable for the patient to receive 1 unit of PRBC. We will transfuse once iron studies have been collected. Suspect multifactorial anemia, anemia of chronic disease. Patient states her colonoscopy was okay the last time she had that she does not recall when exactly it was . 12/31/17 pt seen today for her f/u of presumed pneumonia and uti. pt has abnormal xray and is to have ct chest done today. pt denies any complaints today. Patient has been responding well to her IV antibiotics. Patient also found to be anemic and has responded well To her transfusion and her iron infusion. Reason For Visit: PNEMONIA, UTI Physical Exam Vital Signs: Temp Pulse Resp BP Pulse Ox 98.7 F 84 18 154/60 H 90 L 12/31/17 19:41 12/31/17 19:41 12/31/17 19:41 12/31/17 19:41 12/31/17 19:41 Intake & Output 12/30/17 12/31/17 01/01/18 06:59 06:59 06:59 Intake Total 8956 1500 1584 Output Total 1700 1880 1850 Balance 7086 -380 -880 Weight 419 lb 8.635 oz 191 lb 2.252 oz General appearance: PRESENT: no acute distress, cooperative Head exam: PRESENT: atraumatic, normocephalic Eye exam: PRESENT: EOMI Ear exam: PRESENT: normal external ear exam Respiratory exam: PRESENT: clear to auscultation susy Cardiovascular exam: PRESENT: RRR GI/Abdominal exam: PRESENT: normal bowel sounds, soft. ABSENT: guarding, tenderness Neurological exam: PRESENT: alert, awake, oriented to person, oriented to place , oriented to time, CN II-XII grossly intact Results Laboratory Results: 12/31/17 14:50 12/31/17 04:57 12/30/17 12/31/17 12/31/17 08:39 04:57 04:57 WBC Cancelled RBC Cancelled Hgb Cancelled Hct Cancelled MCV Cancelled MCH Cancelled MCHC Cancelled RDW Cancelled Plt Count Cancelled Seg Neutrophils % Cancelled Lymphocytes % Cancelled Monocytes % Cancelled Eosinophils % Cancelled Basophils % Cancelled Absolute Neutrophils Cancelled Absolute Lymphocytes Cancelled Absolute Monocytes Cancelled Absolute Eosinophils Cancelled Absolute Basophils Cancelled Sodium 132.3 L Potassium 4.1 Chloride 102 Carbon Dioxide 24 Anion Gap 6 BUN 16 Creatinine 1.02 Est GFR ( Amer) > 60 Est GFR (Non-Af Amer) 52 L Glucose 82 Calcium 7.7 L Blood Type O POSITIVE Antibody Screen NEGATIVE 12/31/17 12/31/17 06:55 14:50 WBC 5.0 5.0 RBC 2.28 L 2.77 L Hgb 7.4 L 8.9 L Hct 21.4 L 25.7 L MCV 94 93 MCH 32.5 32.0 MCHC 34.6 34.5 RDW 13.7 13.8 Plt Count 430 464 H Seg Neutrophils % 76.1 Lymphocytes % 10.0 L Monocytes % 10.4 Eosinophils % 3.0 Basophils % 0.5 Absolute Neutrophils 3.8 Absolute Lymphocytes 0.5 Absolute Monocytes 0.5 Absolute Eosinophils 0.1 Absolute Basophils 0.0 Sodium Potassium Chloride Carbon Dioxide Anion Gap BUN Creatinine Est GFR ( Amer) Est GFR (Non-Af Amer) Glucose Calcium Blood Type Antibody Screen Impressions: Chest X-Ray 12/28/17 16:29 IMPRESSION: 1. FAINT DENSITY IN THE RIGHT UPPER LOBE, POSSIBLY ARTIFACT DUE TO OVERLYING TISSUE. CANNOT EXCLUDE UNDERLYING PARENCHYMAL LESION. MAY CONSIDER FOLLOW-UP CT OF THE CHEST FOR MORE COMPLETE EVALUATION. 2. LARGE HIATAL HERNIA WITH INTRATHORACIC STOMACH. Chest CT 12/30/17 00:00 IMPRESSION: 1. MODERATE RIGHT PLEURAL EFFUSION AND SMALL LEFT PLEURAL EFFUSION. 2. 1 CM SUBPLEURAL NODULE IN THE RIGHT LOWER LOBE. 3. 2 CM FAINT AREA OF GROUND-GLASS OPACITY IN THE RIGHT UPPER LOBE, NONSPECIFIC. THIS COULD BE DUE TO ATELECTASIS, PNEUMONITIS, OR POTENTIALLY INFECTION. 4. LARGE HIATAL HERNIA WITH INTRATHORACIC STOMACH. 5. SMALL AMOUNT OF ASCITES IN THE UPPER ABDOMEN. 6. POSSIBLE LEFT ADRENAL NODULE. Assessment & Plan - Diagnosis (1) Hypertension Qualifiers: Hypertension type: essential hypertension Qualified Code(s): I10 - Essential (primary) hypertension Is this a current diagnosis for this admission?: Yes Plan: Amlodipine increased to 10 mg times (2) Pneumonia Qualifiers: Pneumonia type: due to unspecified organism Laterality: right Lung location: upper lobe of lung Qualified Code(s): J18.1 - Lobar pneumonia, unspecified organism Is this a current diagnosis for this admission?: Yes Plan: Continue current antibiotic therapy. We will proceed with CT chest with contrast. (3) Anemia Qualifiers: Anemia type: unspecified type Qualified Code(s): D64.9 - Anemia, unspecified Is this a current diagnosis for this admission?: Yes Plan: Stool occult blood negative. Patient transfused 1 unit of PRBC. Patient to be given iron infusion 1. (4) UTI (urinary tract infection) Qualifiers: Urinary tract infection type: site unspecified Is this a current diagnosis for this admission?: Yes Plan: UA shows mild leukocyte esterase no cultures. Continued on empiric antibiotic regimen will be P.o. antibiotics and discharged in the a.m. (5) Hypothyroidism Qualifiers: Hypothyroidism type: unspecified Qualified Code(s): E03.9 - Hypothyroidism , unspecified Is this a current diagnosis for this admission?: Yes (6) Bladder cancer Is this a current diagnosis for this admission?: Yes Plan: Being followed by urology at [facility]. - Time Time Spent with patient: Less than 15 minutes - Inpatient Certification Based on my medical assessment, after consideration of the patient's comorbidities, presenting symptoms, or acuity I expect that the services needed warrant INPATIENT care.: Yes I certify that my determination is in accordance with my understanding of Medicare's requirements for reasonable and necessary INPATIENT services [42 CFR 412.3e].: Yes
[2018-01-01] MEDS: PIPERACILLIN SODIUM/TAZOBACTAM 3.375 GM in NORMAL SALINE 100 ML IV SCH ×5 (00:19→23:46)
[2018-01-01] MEDS: NORMAL SALINE 1000 ML 1,000 ML IV PRN ×3 (00:21→22:04)
[2018-01-01 04:39] LABS: ABSOLUTE BASOPHILS # (AUTO) 0.1 10^3/uL (0.0-0.2); ABSOLUTE EOSINOPHILS # (AUTO) 0.2 10^3/uL (0.0-0.6); ABSOLUTE LYMPHOCYTES (AUTO) 0.5 10^3/uL (0.5-4.7); ABSOLUTE MONOCYTES (AUTO) 0.6 10^3/uL (0.1-1.4); ABSOLUTE NEUT (AUTO) 3.2 10^3/uL (1.7-8.2); BASOPHILS % (AUTO) 1.2 % (0-2); EOSINOPHILS % (AUTO) 3.8 % (0-6); HEMATOCRIT 23.3 % (36.0-47.0); HEMOGLOBIN 8.1 g/dL (12.0-15.5); LYMPHOCYTES % (AUTO) 10.7 % (13-45); MEAN CORPUSCULAR HEMOGLOBIN 32.1 pg (27.0-33.4); MEAN CORPUSCULAR HGB CONC 34.7 g/dL (32.0-36.0); MEAN CORPUSCULAR VOLUME 93 fl (80-97); MONOCYTES % (AUTO) 13.5 % (3-13); PLATELET COUNT 419 10^3/uL (150-450); RED BLOOD COUNT 2.51 10^6/uL (3.72-5.28); RED CELL DISTRIBUTION WIDTH 13.7 % (11.5-14.0); SEGMENTED NEUTROPHILS % (AUTO) 70.8 % (42-78); TOTAL CELLS COUNTED % (AUTO) 100 %; WHITE BLOOD COUNT 4.5 10^3/uL (4.0-10.5)
[2018-01-01 04:54] LABS: ANION GAP 9 (5-19); BLOOD UREA NITROGEN 13 mg/dL (7-20); CALCIUM 7.7 mg/dL (8.4-10.2); CARBON DIOXIDE 22 mmol/L (22-30); CHLORIDE 104 mmol/L (98-107); GLUCOSE 77 mg/dL (75-110)
[2018-01-01] MEDS: LEVOTHYROXINE SODIUM 0.075 MG TABLET PO SCH (08:12)
[2018-01-01] MEDS: LISINOPRIL 10 MG TABLET PO SCH ×4 (10:10→17:44)
[2018-01-01] MEDS: SENNOSIDES/DOCUSATE 8.6-50 MG 1 EACH TABLET PO SCH (10:10)
[2018-01-01] MEDS: MULTIVITAMIN TABLET PO SCH (10:10)
[2018-01-01] MEDS: CALCIUM CARBONATE 500 MG TABLET PO SCH (10:10)
[2018-01-01] MEDS: HYDROCHLOROTHIAZIDE 12.5 MG TABLET PO SCH ×2 (10:10→17:43)
[2018-01-01] MEDS: AMLODIPINE BESYLATE 5 MG TABLET PO SCH (10:10)
[2018-01-01] MEDS: ENOXAPARIN SODIUM INJ 40 MG/0.4 ML DISP.SYRIN SUBCUT SCH (10:11)
[2018-01-01] MEDS: GUAIFENESIN 600 MG TABLET.SA PO SCH ×2 (10:11→22:01)
--- NOTE | 2018-01-01 16:46 | PDOC PROGRESS REPORT ---
Subjective Progress Note for:: 01/01/18 Subjective:: Patient is a 82-year-old admitted with not feeling well. Due to patient's urological history patient admitted for urinary tract infection , pneumonia, hyperthyroidism, anemia, and hypertension. Patient has been continued on Pipracil and tazobactam for her infection. Patient is on duo nebs, continued on her antihypertensive therapy with amlodipine lisinopril, hydrochlorothiazide. Patient is continued on her atorvastatin for dyslipidemia. Vitals have been stable blood pressure has been high will increase patient's amlodipine to 10 mg. Received report from chilango BREWER about patient's hemoglobin dropping to 7.6. Stat PRBC type and cross was done to start patient on 1 unit. Rounds in the afternoon discussed with patient about need for transfusion as her hemoglobin has dropped down to 7.6. Patient states that she has always had an iron infusion and that that helped her numbers. Patient recalls describes how her primary care physician started giving her iron infusion and transitioned her to p.o. iron pills. When asked when she received her iron infusion last patient states it was 1991 and 1992. Patient does not recall seeing a waiter/waitress head or having a bone biopsy for anemia evaluation. Past with patient that it is advisable for the patient to receive 1 unit of PRBC. We will transfuse once iron studies have been collected. Suspect multifactorial anemia, anemia of chronic disease. Patient states her colonoscopy was okay the last time she had that she does not recall when exactly it was . 12/31/17 pt seen today for her f/u of presumed pneumonia and uti. pt has abnormal xray and is to have ct chest done today. pt denies any complaints today. Patient has been responding well to her IV antibiotics. Patient also found to be anemic and has responded well To her transfusion and her iron infusion. 01/01/18 Patient seen today for follow-up of her pneumonia. Chest CT done shows more clearly the patient has an infection. Patient denies any complaints today. Patient has had bowel bowel movement today vitals are stable today. Patient has been responding well to her antibiotics. Patient has done well after her PRBC transfusion and receiving iron. Reason For Visit: PNEMONIA, UTI Physical Exam Vital Signs: Temp Pulse Resp BP Pulse Ox 98.4 F 79 16 139/53 H 97 01/01/18 15:19 01/01/18 15:19 01/01/18 15:19 01/01/18 15:19 01/01/18 15:19 Intake & Output 12/31/17 01/01/18 01/02/18 06:59 06:59 06:59 Intake Total 1500 2715 1000 Output Total 1880 4375 Balance -380 -1660 1000 Weight 191 lb 2.252 oz 186 lb 11.704 oz General appearance: PRESENT: no acute distress, cooperative Head exam: PRESENT: atraumatic, normocephalic Eye exam: PRESENT: EOMI Ear exam: PRESENT: normal external ear exam Respiratory exam: PRESENT: clear to auscultation susy Cardiovascular exam: PRESENT: RRR GI/Abdominal exam: PRESENT: soft. ABSENT: distended, tenderness Neurological exam: PRESENT: alert, awake, oriented to person, oriented to place , oriented to time, CN II-XII grossly intact Results Laboratory Results: 01/01/18 03:50 01/01/18 03:50 01/01/18 01/01/18 03:50 03:50 WBC 4.5 RBC 2.51 L Hgb 8.1 L Hct 23.3 L MCV 93 MCH 32.1 MCHC 34.7 RDW 13.7 Plt Count 419 Seg Neutrophils % 70.8 Lymphocytes % 10.7 L Monocytes % 13.5 H Eosinophils % 3.8 Basophils % 1.2 Absolute Neutrophils 3.2 Absolute Lymphocytes 0.5 Absolute Monocytes 0.6 Absolute Eosinophils 0.2 Absolute Basophils 0.1 Sodium 135.0 L Potassium 4.0 Chloride 104 Carbon Dioxide 22 Anion Gap 9 BUN 13 Creatinine 0.98 Est GFR ( Amer) > 60 Est GFR (Non-Af Amer) 54 L Glucose 77 Calcium 7.7 L 12/30/17 08:25 Sputum Gram Stain - Final 12/30/17 08:25 Sputum Sputum Culture - Final C.albicans/C.dubliniensis Normal Lesia Impressions: Chest X-Ray 12/28/17 16:29 IMPRESSION: 1. FAINT DENSITY IN THE RIGHT UPPER LOBE, POSSIBLY ARTIFACT DUE TO OVERLYING TISSUE. CANNOT EXCLUDE UNDERLYING PARENCHYMAL LESION. MAY CONSIDER FOLLOW-UP CT OF THE CHEST FOR MORE COMPLETE EVALUATION. 2. LARGE HIATAL HERNIA WITH INTRATHORACIC STOMACH. Chest CT 12/30/17 00:00 IMPRESSION: 1. MODERATE RIGHT PLEURAL EFFUSION AND SMALL LEFT PLEURAL EFFUSION. 2. 1 CM SUBPLEURAL NODULE IN THE RIGHT LOWER LOBE. 3. 2 CM FAINT AREA OF GROUND-GLASS OPACITY IN THE RIGHT UPPER LOBE, NONSPECIFIC. THIS COULD BE DUE TO ATELECTASIS, PNEUMONITIS, OR POTENTIALLY INFECTION. 4. LARGE HIATAL HERNIA WITH INTRATHORACIC STOMACH. 5. SMALL AMOUNT OF ASCITES IN THE UPPER ABDOMEN. 6. POSSIBLE LEFT ADRENAL NODULE. Assessment & Plan - Diagnosis (1) Hypertension Qualifiers: Hypertension type: essential hypertension Qualified Code(s): I10 - Essential (primary) hypertension Is this a current diagnosis for this admission?: Yes Plan: Amlodipine increased to 10 mg . Lisinopril 10 mg p.o. twice daily in addition to HCTZ 12.5 twice a day is continued. Blood pressure and patient will be around systolics of 130s-140s primarily due to her age and systolic hypertension. (2) Pneumonia Qualifiers: Pneumonia type: due to unspecified organism Laterality: right Lung location: upper lobe of lung Qualified Code(s): J18.1 - Lobar pneumonia, unspecified organism Is this a current diagnosis for this admission?: Yes Plan: Continue current antibiotic therapy with Zosyn. CT chest shows that the abnormality on the chest x-ray which was 2 cm faint area of groundglass opacity on right upper lobe is nonspecific and Most likely due to pneumonitis or potential infection or atelectas. Suspect pneumonia. As large hiatal hernia with with an intrathoracic stomach found on the CT. (3) Anemia Qualifiers: Anemia type: unspecified type Qualified Code(s): D64.9 - Anemia, unspecified Is this a current diagnosis for this admission?: Yes Plan: Stool occult blood negative. Patient received 1 unit of PRBC, and also iron iron infusion 1. The etiology of the anemia is uncertain . suspect anemia of chronic disease due to patient's history of cancer. (4) UTI (urinary tract infection) Qualifiers: Urinary tract infection type: site unspecified Is this a current diagnosis for this admission?: Yes Plan: UA shows mild leukocyte esterase no cultures. Continued on empiric antibiotic regimen will be P.o. antibiotics and discharged in the a.m. (5) Hypothyroidism Qualifiers: Hypothyroidism type: unspecified Qualified Code(s): E03.9 - Hypothyroidism , unspecified Is this a current diagnosis for this admission?: Yes Plan: Patient's levothyroxine is continued. (6) Bladder cancer Is this a current diagnosis for this admission?: Yes Plan: Being followed by urology at [facility].
[2018-01-01] MEDS: ATORVASTATIN CALCIUM 40 MG TABLET PO SCH (22:01)
[2018-01-02] MEDS: PIPERACILLIN SODIUM/TAZOBACTAM 3.375 GM in NORMAL SALINE 100 ML IV SCH ×4 (05:22→23:06)
[2018-01-02] MEDS: LEVOTHYROXINE SODIUM 0.075 MG TABLET PO SCH (08:24)
[2018-01-02] MEDS: LISINOPRIL 10 MG TABLET PO SCH ×2 (09:55→17:07)
[2018-01-02] MEDS: HYDROCHLOROTHIAZIDE 12.5 MG TABLET PO SCH ×2 (09:58→17:34)
[2018-01-02] MEDS: GUAIFENESIN 600 MG TABLET.SA PO SCH ×2 (09:58→21:07)
[2018-01-02] MEDS: SENNOSIDES/DOCUSATE 8.6-50 MG 1 EACH TABLET PO SCH (09:58)
[2018-01-02] MEDS: MULTIVITAMIN TABLET PO SCH (09:58)
[2018-01-02] MEDS: CALCIUM CARBONATE 500 MG TABLET PO SCH (09:59)
[2018-01-02] MEDS: AMLODIPINE BESYLATE 5 MG TABLET PO SCH (09:59)
[2018-01-02] MEDS: ENOXAPARIN SODIUM INJ 40 MG/0.4 ML DISP.SYRIN SUBCUT SCH (09:59)
[2018-01-02] MEDS: NORMAL SALINE 1000 ML 1,000 ML IV PRN ×2 (12:28→23:11)
[2018-01-02 13:12] LABS: ABSOLUTE EOSINOPHILS # (AUTO) 0.2 10^3/uL (0.0-0.6); ABSOLUTE LYMPHOCYTES (AUTO) 0.5 10^3/uL (0.5-4.7); ABSOLUTE MONOCYTES (AUTO) 0.6 10^3/uL (0.1-1.4); ABSOLUTE NEUT (AUTO) 3.6 10^3/uL (1.7-8.2); BASOPHILS % (AUTO) 0.7 % (0-2); EOSINOPHILS % (AUTO) 3.3 % (0-6); HEMATOCRIT 27.8 % (36.0-47.0); HEMOGLOBIN 9.5 g/dL (12.0-15.5); LYMPHOCYTES % (AUTO) 9.6 % (13-45); MEAN CORPUSCULAR HEMOGLOBIN 31.3 pg (27.0-33.4); MEAN CORPUSCULAR VOLUME 92 fl (80-97); MONOCYTES % (AUTO) 11.7 % (3-13); PLATELET COUNT 452 10^3/uL (150-450); RED BLOOD COUNT 3.02 10^6/uL (3.72-5.28); RED CELL DISTRIBUTION WIDTH 13.9 % (11.5-14.0); SEGMENTED NEUTROPHILS % (AUTO) 74.7 % (42-78); TOTAL CELLS COUNTED % (AUTO) 100 %; WHITE BLOOD COUNT 4.8 10^3/uL (4.0-10.5)
[2018-01-02 13:34] LABS: ALANINE AMINOTRANSFERASE 20 U/L (9-52); ALBUMIN 2.5 g/dL (3.5-5.0); ALKALINE PHOSPHATASE 46 U/L (38-126); ANION GAP 11 (5-19); ASPARTATE AMINO TRANSFERASE 18 U/L (14-36); BILIRUBIN,DIRECT 0.2 mg/dL (0.0-0.4); BILIRUBIN,TOTAL 0.2 mg/dL (0.2-1.3); BLOOD UREA NITROGEN 10 mg/dL (7-20); CALCIUM 8.1 mg/dL (8.4-10.2); CARBON DIOXIDE 22 mmol/L (22-30); CHLORIDE 104 mmol/L (98-107); GLUCOSE 81 mg/dL (75-110); PHOSPHORUS 2.8 mg/dL (2.5-4.5); POTASSIUM 3.7 mmol/L (3.6-5.0); SODIUM 137.4 mmol/L (137-145); TOTAL PROTEIN 5.5 g/dL (6.3-8.2)
[2018-01-02] MEDS: ATORVASTATIN CALCIUM 40 MG TABLET PO SCH (21:07)
--- NOTE | 2018-01-02 21:28 | PDOC PROGRESS REPORT ---
Subjective Progress Note for:: 01/02/18 Subjective:: Patient is a 82-year-old admitted with not feeling well. Due to patient's urological history patient admitted for urinary tract infection , pneumonia, hyperthyroidism, anemia, and hypertension. Patient has been continued on Pipracil and tazobactam for her infection. Patient is on duo nebs, continued on her antihypertensive therapy with amlodipine lisinopril, hydrochlorothiazide. Patient is continued on her atorvastatin for dyslipidemia. Vitals have been stable blood pressure has been high will increase patient's amlodipine to 10 mg. Received report from chilango MD about patient's hemoglobin dropping to 7.6. Stat PRBC type and cross was done to start patient on 1 unit. Rounds in the afternoon discussed with patient about need for transfusion as her hemoglobin has dropped down to 7.6. Patient states that she has always had an iron infusion and that that helped her numbers. Patient recalls describes how her primary care physician started giving her iron infusion and transitioned her to p.o. iron pills. When asked when she received her iron infusion last patient states it was 1991 and 1992. Patient does not recall seeing a compounder or having a bone biopsy for anemia evaluation. Past with patient that it is advisable for the patient to receive 1 unit of PRBC. We will transfuse once iron studies have been collected. Suspect multifactorial anemia, anemia of chronic disease. Patient states her colonoscopy was okay the last time she had that she does not recall when exactly it was . 12/31/17 pt seen today for her f/u of presumed pneumonia and uti. pt has abnormal xray and is to have ct chest done today. pt denies any complaints today. Patient has been responding well to her IV antibiotics. Patient also found to be anemic and has responded well To her transfusion and her iron infusion. 01/01/18 Patient seen today for follow-up of her pneumonia. Chest CT done shows more clearly the patient has an infection. Patient denies any complaints today. Patient has had bowel bowel movement today vitals are stable today. Patient has been responding well to her antibiotics. Patient has done well after her PRBC transfusion and receiving iron. 01/02/18 Seen today for follow-up of her pneumonia. Received report from patient and nurse about patient's oxygen saturation dropping of the night to 89. Patient CT patient has a right upper lobe area of concern possible infection. We will continue patient on antibiotic therapy and repeat CT to document resolution. Expect discharge day after tomorrow. Reason For Visit: PNEMONIA, UTI Physical Exam Vital Signs: Temp Pulse Resp BP Pulse Ox 98.9 F 84 16 156/67 H 96 01/02/18 19:34 01/02/18 19:34 01/02/18 19:34 01/02/18 19:34 01/02/18 19:34 Intake & Output 01/01/18 01/02/18 01/03/18 06:59 06:59 06:59 Intake Total 2715 2973 1632 Output Total 4375 2000 3075 Balance -1660 973 -1443 Weight 186 lb 11.704 oz 188 lb 0.869 oz General appearance: PRESENT: no acute distress, cooperative Head exam: PRESENT: atraumatic, normocephalic Eye exam: PRESENT: EOMI Respiratory exam: PRESENT: clear to auscultation susy Cardiovascular exam: PRESENT: RRR GI/Abdominal exam: PRESENT: normal bowel sounds, soft. ABSENT: guarding, tenderness Neurological exam: PRESENT: alert, awake, oriented to person, oriented to place , oriented to time, CN II-XII grossly intact, normal gait Results Laboratory Results: 01/02/18 12:45 01/02/18 12:45 01/02/18 01/02/18 12:45 12:45 WBC 4.8 RBC 3.02 L Hgb 9.5 L Hct 27.8 L MCV 92 MCH 31.3 MCHC 34.0 RDW 13.9 Plt Count 452 H Seg Neutrophils % 74.7 Lymphocytes % 9.6 L Monocytes % 11.7 Eosinophils % 3.3 Basophils % 0.7 Absolute Neutrophils 3.6 Absolute Lymphocytes 0.5 Absolute Monocytes 0.6 Absolute Eosinophils 0.2 Absolute Basophils 0.0 Sodium 137.4 Potassium 3.7 Chloride 104 Carbon Dioxide 22 Anion Gap 11 BUN 10 Creatinine 0.99 Est GFR ( Amer) > 60 Est GFR (Non-Af Amer) 53 L Glucose 81 Calcium 8.1 L Phosphorus 2.8 Magnesium 1.7 Total Bilirubin 0.2 AST 18 ALT 20 Alkaline Phosphatase 46 Total Protein 5.5 L Albumin 2.5 L Impressions: Chest X-Ray 12/28/17 16:29 IMPRESSION: 1. FAINT DENSITY IN THE RIGHT UPPER LOBE, POSSIBLY ARTIFACT DUE TO OVERLYING TISSUE. CANNOT EXCLUDE UNDERLYING PARENCHYMAL LESION. MAY CONSIDER FOLLOW-UP CT OF THE CHEST FOR MORE COMPLETE EVALUATION. 2. LARGE HIATAL HERNIA WITH INTRATHORACIC STOMACH. Chest CT 12/30/17 00:00 IMPRESSION: 1. MODERATE RIGHT PLEURAL EFFUSION AND SMALL LEFT PLEURAL EFFUSION. 2. 1 CM SUBPLEURAL NODULE IN THE RIGHT LOWER LOBE. 3. 2 CM FAINT AREA OF GROUND-GLASS OPACITY IN THE RIGHT UPPER LOBE, NONSPECIFIC. THIS COULD BE DUE TO ATELECTASIS, PNEUMONITIS, OR POTENTIALLY INFECTION. 4. LARGE HIATAL HERNIA WITH INTRATHORACIC STOMACH. 5. SMALL AMOUNT OF ASCITES IN THE UPPER ABDOMEN. 6. POSSIBLE LEFT ADRENAL NODULE. Assessment & Plan - Diagnosis (1) Pneumonia Qualifiers: Pneumonia type: due to unspecified organism Laterality: right Lung location: upper lobe of lung Qualified Code(s): J18.1 - Lobar pneumonia, unspecified organism Is this a current diagnosis for this admission?: Yes Plan: Continue current antibiotic therapy with Zosyn. CT chest shows that the abnormality on the chest x-ray which was 2 cm faint area of groundglass opacity on right upper lobe is nonspecific and Most likely due to pneumonitis or potential infection or atelectas. Suspect pneumonia. As large hiatal hernia with with an intrathoracic stomach found on the CT. (2) Hypertension Qualifiers: Hypertension type: essential hypertension Qualified Code(s): I10 - Essential (primary) hypertension Is this a current diagnosis for this admission?: Yes Plan: Amlodipine increased to 10 mg . Lisinopril 10 mg p.o. twice daily in addition to HCTZ 12.5 twice a day is continued. Blood pressure and patient will be around systolics of 130s-140s primarily due to her age and systolic hypertension. (3) Anemia Qualifiers: Anemia type: unspecified type Qualified Code(s): D64.9 - Anemia, unspecified Is this a current diagnosis for this admission?: Yes Plan: Stool occult blood negative. Patient received 1 unit of PRBC, and also iron iron infusion 1. The etiology of the anemia is uncertain . suspect anemia of chronic disease due to patient's history of cancer. (4) UTI (urinary tract infection) Qualifiers: Urinary tract infection type: site unspecified Is this a current diagnosis for this admission?: Yes Plan: UA shows mild leukocyte esterase no cultures. Continued on empiric antibiotic regimen will be P.o. antibiotics and discharged in the a.m. (5) Hypothyroidism Qualifiers: Hypothyroidism type: unspecified Qualified Code(s): E03.9 - Hypothyroidism , unspecified Is this a current diagnosis for this admission?: Yes (6) Bladder cancer Is this a current diagnosis for this admission?: Yes
[2018-01-03 05:22] LABS: ABSOLUTE EOSINOPHILS # (AUTO) 0.2 10^3/uL (0.0-0.6); ABSOLUTE LYMPHOCYTES (AUTO) 0.5 10^3/uL (0.5-4.7); ABSOLUTE MONOCYTES (AUTO) 0.6 10^3/uL (0.1-1.4); ABSOLUTE NEUT (AUTO) 4.3 10^3/uL (1.7-8.2); BASOPHILS % (AUTO) 0.8 % (0-2); EOSINOPHILS % (AUTO) 3.7 % (0-6); HEMATOCRIT 26.4 % (36.0-47.0); HEMOGLOBIN 8.8 g/dL (12.0-15.5); LYMPHOCYTES % (AUTO) 9.3 % (13-45); MEAN CORPUSCULAR HEMOGLOBIN 30.9 pg (27.0-33.4); MEAN CORPUSCULAR HGB CONC 33.1 g/dL (32.0-36.0); MEAN CORPUSCULAR VOLUME 93 fl (80-97); MONOCYTES % (AUTO) 11.2 % (3-13); PLATELET COUNT 471 10^3/uL (150-450); RED BLOOD COUNT 2.83 10^6/uL (3.72-5.28); RED CELL DISTRIBUTION WIDTH 13.7 % (11.5-14.0); TOTAL CELLS COUNTED % (AUTO) 100 %; WHITE BLOOD COUNT 5.7 10^3/uL (4.0-10.5)
[2018-01-03 05:57] LABS: ALANINE AMINOTRANSFERASE 25 U/L (9-52); ALBUMIN 2.3 g/dL (3.5-5.0); ALKALINE PHOSPHATASE 40 U/L (38-126); ANION GAP 10 (5-19); ASPARTATE AMINO TRANSFERASE 17 U/L (14-36); BILIRUBIN,DIRECT 0.1 mg/dL (0.0-0.4); BILIRUBIN,TOTAL 0.1 mg/dL (0.2-1.3); BLOOD UREA NITROGEN 10 mg/dL (7-20); CALCIUM 7.8 mg/dL (8.4-10.2); CARBON DIOXIDE 21 mmol/L (22-30); CHLORIDE 106 mmol/L (98-107); GLUCOSE 76 mg/dL (75-110); PHOSPHORUS 2.8 mg/dL (2.5-4.5); POTASSIUM 3.9 mmol/L (3.6-5.0); SODIUM 137.3 mmol/L (137-145); TOTAL PROTEIN 5.3 g/dL (6.3-8.2)
[2018-01-03] MEDS: PIPERACILLIN SODIUM/TAZOBACTAM 3.375 GM in NORMAL SALINE 100 ML IV SCH ×3 (06:15→18:07)
[2018-01-03] MEDS: LEVOTHYROXINE SODIUM 0.075 MG TABLET PO SCH (07:32)
[2018-01-03] MEDS: GUAIFENESIN 600 MG TABLET.SA PO SCH ×2 (09:41→22:36)
[2018-01-03] MEDS: CALCIUM CARBONATE 500 MG TABLET PO SCH (09:41)
[2018-01-03] MEDS: SENNOSIDES/DOCUSATE 8.6-50 MG 1 EACH TABLET PO SCH (09:41)
[2018-01-03] MEDS: AMLODIPINE BESYLATE 5 MG TABLET PO SCH (09:41)
[2018-01-03] MEDS: HYDROCHLOROTHIAZIDE 12.5 MG TABLET PO SCH ×2 (09:41→18:07)
[2018-01-03] MEDS: MULTIVITAMIN TABLET PO SCH (09:41)
[2018-01-03] MEDS: ENOXAPARIN SODIUM INJ 40 MG/0.4 ML DISP.SYRIN SUBCUT SCH (09:42)
[2018-01-03] MEDS: LISINOPRIL 10 MG TABLET PO SCH ×2 (09:42→18:03)
[2018-01-03 17:01] LABS: APPEARANCE,URINE CLEAR; BILIRUBIN,URINE NEGATIVE (NEGATIVE); COLOR,URINE YELLOW; GLUCOSE, URINE NEGATIVE (NEGATIVE); KETONES,URINE NEGATIVE (NEGATIVE); LEUKOCYTE ESTERASE,URINE MODERATE (NEGATIVE); NITRITE,URINE NEGATIVE (NEGATIVE); PROTEIN,URINE NEGATIVE (NEGATIVE); URINE SPECIFIC GRAVITY 1.011; UROBILINOGEN,URINE NEGATIVE mg/dL (<2.0)
--- NOTE | 2018-01-03 17:46 | RADIOLOGY REPORT (SQ) ---
EXAM DESCRIPTION: CTA CHEST COMPLETED DATE/TIME: 01/03/2018 5:32 pm REASON FOR STUDY: SOB/POS DDIMER/ ABNORMAL CT. COMPARISON: 12/31/2017 TECHNIQUE: CT scan of the chest performed using helical scanning technique with dynamic intravenous contrast injection. Images reviewed with lung, soft tissue and bone windows. Reconstructed coronal and sagittal MPR images reviewed. Additional 3 dimensional post-processing performed to develop Maximal Intensity Projection images (WA P). All images stored on PACS. All CT scanners at this facility use dose modulation, iterative reconstruction, and/or weight based d osing when appropriate to reduce radiation dose to as low as reasonably achievable (ALARA). [facility]: Dose Right [facility]: CareDose [facility]: Dose Right [facility]: Teradose 4D [facility]: Nicholas Haddox Records CONTRAST TYPE AND DOSE: contrast/concentration: Isovue 350.00 mg/ml; Total Contrast Delivered: 77.0 ml; Total Saline Delivered: 90.0 ml Contrast bolus optimized for the pulmonary arteries. Not diagnostic for the aorta. RENAL FUNCTION: BUN 10 creatinine 1 RADIATION DOSE: CT Rad equipment meets quality standard of care and radiation dose reduction techniq ues were employed. CTDIvol: 18.5 - 24.8 mGy. DLP: 652 mGy-cm. . LIMITATIONS: None. FINDINGS: LUNGS AND PLEURA: Stable right lower lobe pulmonary nodule. Moderate right pleural effusi on. Minimal left pleural effusion. Limited ground-glass infiltrate in the right upper lobe. Stable . AORTA AND GREAT VESSELS: No aneurysm. Contrast bolus not optimized for the aorta. HEART: No pericardial effusion. Moderate to marked coronary artery calcifications. PULMONARY ARTERIES: No emboli visualized in the main pulmonary arteries or the segmental branches. HILAR AND MEDIASTINAL STRUCTURES: Large hiatal hernia. No other mediastinal or hilar masses. HARDWARE: None in the chest. UPPER ABDOMEN: Most of the stomach is above the diaphragm. THYROID AND OTHER SOFT TISSUES: No masses. No adenopathy. BONES: No acute or significant finding. 3D MIPS: Confirm above findings. OTHER: No other significant finding. IMPRESSION: 1. Stable right lower lobe pulmonary nodule. Stable limited area of ground-glass opaci fication in the right upper lobe. Moderate right pleural effusion. Minimal left pleural effusion. 2. There is no evidence of pulmonary embolus. 3. Large hiatal hernia with most of the stomach above the diaphragm. COMMENT: Quality ID # [id number]: Final reports with documentation of one or more dose reduction techniques (e.g., Automated exposure control, adjustment of the mA and/or kV according to patient size, use of iterative reconstruction technique) TECHNICAL DOCUMENTATION: JOB ID: [id number] [employer]- All Rights Reserved Reading location - IP/workstation name: [email or web address]
[2018-01-03] MEDS: ATORVASTATIN CALCIUM 40 MG TABLET PO SCH (22:36)
--- NOTE | 2018-01-04 00:05 | PDOC PROGRESS REPORT ---
Subjective Progress Note for:: 01/04/18 Subjective:: Patient is a 82-year-old admitted with not feeling well. Due to patient's urological history patient admitted for urinary tract infection , pneumonia, hyperthyroidism, anemia, and hypertension. Patient has been continued on Pipracil and tazobactam for her infection. Patient is on duo nebs, continued on her antihypertensive therapy with amlodipine lisinopril, hydrochlorothiazide. Patient is continued on her atorvastatin for dyslipidemia. Vitals have been stable blood pressure has been high will increase patient's amlodipine to 10 mg. Received report from chilango MD about patient's hemoglobin dropping to 7.6. Stat PRBC type and cross was done to start patient on 1 unit. Rounds in the afternoon discussed with patient about need for transfusion as her hemoglobin has dropped down to 7.6. Patient states that she has always had an iron infusion and that that helped her numbers. Patient recalls describes how her primary care physician started giving her iron infusion and transitioned her to p.o. iron pills. When asked when she received her iron infusion last patient states it was 1991 and 1992. Patient does not recall seeing a eyeglass lens grinder or having a bone biopsy for anemia evaluation. Past with patient that it is advisable for the patient to receive 1 unit of PRBC. We will transfuse once iron studies have been collected. Suspect multifactorial anemia, anemia of chronic disease. Patient states her colonoscopy was okay the last time she had that she does not recall when exactly it was . 12/31/17 pt seen today for her f/u of presumed pneumonia and uti. pt has abnormal xray and is to have ct chest done today. pt denies any complaints today. Patient has been responding well to her IV antibiotics. Patient also found to be anemic and has responded well To her transfusion and her iron infusion. 01/01/18 Patient seen today for follow-up of her pneumonia. Chest CT done shows more clearly the patient has an infection. Patient denies any complaints today. Patient has had bowel bowel movement today vitals are stable today. Patient has been responding well to her antibiotics. Patient has done well after her PRBC transfusion and receiving iron. 01/02/18 Seen today for follow-up of her pneumonia. Received report from patient and nurse about patient's oxygen saturation dropping of the night to 89. Patient CT patient has a right upper lobe area of concern possible infection. We will continue patient on antibiotic therapy and repeat CT to document resolution. Expect discharge day after tomorrow. Reason For Visit: PNEMONIA, UTI Physical Exam Vital Signs: Temp Pulse Resp BP Pulse Ox 98.2 F 83 16 132/59 H 99 01/03/18 23:55 01/03/18 23:55 01/03/18 23:55 01/03/18 23:55 01/03/18 23:55 Intake & Output 01/02/18 01/03/18 01/04/18 06:59 06:59 06:59 Intake Total 2973 3461 1791 Output Total 1999 9774 650 Balance 973 -1014 1141 Weight 188 lb 0.869 oz 185 lb 10.067 oz General appearance: PRESENT: no acute distress. ABSENT: obese Head exam: PRESENT: atraumatic, normocephalic Eye exam: PRESENT: EOMI Respiratory exam: PRESENT: clear to auscultation susy Cardiovascular exam: PRESENT: RRR GI/Abdominal exam: PRESENT: soft. ABSENT: distended, tenderness Musculoskeletal exam: PRESENT: ambulatory Neurological exam: PRESENT: alert, awake, oriented to person, oriented to place , oriented to time, CN II-XII grossly intact Results Laboratory Results: 01/03/18 04:35 01/03/18 04:35 01/03/18 01/03/18 01/03/18 04:35 04:35 15:27 WBC 5.7 RBC 2.83 L Hgb 8.8 L Hct 26.4 L MCV 93 MCH 30.9 MCHC 33.1 RDW 13.7 Plt Count 471 H Seg Neutrophils % 75.0 Lymphocytes % 9.3 L Monocytes % 11.2 Eosinophils % 3.7 Basophils % 0.8 Absolute Neutrophils 4.3 Absolute Lymphocytes 0.5 Absolute Monocytes 0.6 Absolute Eosinophils 0.2 Absolute Basophils 0.0 Sodium 137.3 Potassium 3.9 Chloride 106 Carbon Dioxide 21 L Anion Gap 10 BUN 10 Creatinine 1.01 Est GFR ( Amer) > 60 Est GFR (Non-Af Amer) 52 L Glucose 76 Calcium 7.8 L Phosphorus 2.8 Magnesium 1.6 Total Bilirubin 0.1 L AST 17 ALT 25 Alkaline Phosphatase 40 Total Protein 5.3 L Albumin 2.3 L Urine Color YELLOW Urine Appearance CLEAR Urine pH 7.0 Ur Specific [place] 1.011 Urine Protein NEGATIVE Urine Glucose (UA) NEGATIVE Urine Ketones NEGATIVE Urine Blood SMALL H Urine Nitrite NEGATIVE Ur Leukocyte Esterase MODERATE H Urine WBC (Auto) 10 Urine RBC (Auto) 7 01/03/18 04:35 NT-Pro-B Natriuret Pep 772 H Impressions: Chest X-Ray 12/28/17 16:29 IMPRESSION: 1. FAINT DENSITY IN THE RIGHT UPPER LOBE, POSSIBLY ARTIFACT DUE TO OVERLYING TISSUE. CANNOT EXCLUDE UNDERLYING PARENCHYMAL LESION. MAY CONSIDER FOLLOW-UP CT OF THE CHEST FOR MORE COMPLETE EVALUATION. 2. LARGE HIATAL HERNIA WITH INTRATHORACIC STOMACH. Chest CT 12/30/17 00:00 IMPRESSION: 1. MODERATE RIGHT PLEURAL EFFUSION AND SMALL LEFT PLEURAL EFFUSION. 2. 1 CM SUBPLEURAL NODULE IN THE RIGHT LOWER LOBE. 3. 2 CM FAINT AREA OF GROUND-GLASS OPACITY IN THE RIGHT UPPER LOBE, NONSPECIFIC. THIS COULD BE DUE TO ATELECTASIS, PNEUMONITIS, OR POTENTIALLY INFECTION. 4. LARGE HIATAL HERNIA WITH INTRATHORACIC STOMACH. 5. SMALL AMOUNT OF ASCITES IN THE UPPER ABDOMEN. 6. POSSIBLE LEFT ADRENAL NODULE. Chest/Abdomen CTA 01/03/18 00:00 IMPRESSION: 1. Stable right lower lobe pulmonary nodule. Stable limited area of ground-glass opacification in the right upper lobe. Moderate right pleural effusion. Minimal left pleural effusion. 2. There is no evidence of pulmonary embolus. 3. Large hiatal hernia with most of the stomach above the diaphragm. Assessment & Plan - Diagnosis (1) Pneumonia Qualifiers: Pneumonia type: due to unspecified organism Laterality: right Lung location: upper lobe of lung Qualified Code(s): J18.1 - Lobar pneumonia, unspecified organism Is this a current diagnosis for this admission?: Yes Plan: Continue current antibiotic therapy with Zosyn, Repeat CT chest to rule out PE. (2) Hypertension Qualifiers: Hypertension type: essential hypertension Qualified Code(s): I10 - Essential (primary) hypertension Is this a current diagnosis for this admission?: Yes Plan: Amlodipine increased to 10 mg . Lisinopril 10 mg p.o. twice daily in addition to HCTZ 12.5 twice a day is continued. Blood pressure and patient will be around systolics of 130s-140s primarily due to her age and systolic hypertension. (3) Anemia Qualifiers: Anemia type: unspecified type Qualified Code(s): D64.9 - Anemia, unspecified Is this a current diagnosis for this admission?: Yes Plan: Stool occult blood negative. Patient received 1 unit of PRBC, and also iron iron infusion 1. The etiology of the anemia is uncertain . suspect anemia of chronic disease due to patient's history of cancer. Hemo-globin is stable. (4) UTI (urinary tract infection) Qualifiers: Urinary tract infection type: site unspecified Is this a current diagnosis for this admission?: Yes Plan: UA shows mild leukocyte esterase no cultures. Continued on empiric antibiotic regimen will be P.o. antibiotics and discharged in the a.m. (5) Hypothyroidism Qualifiers: Hypothyroidism type: unspecified Qualified Code(s): E03.9 - Hypothyroidism , unspecified Is this a current diagnosis for this admission?: Yes Plan: Patient's levothyroxine is continued. (6) Bladder cancer Is this a current diagnosis for this admission?: Yes Plan: Being followed by urology at [facility].
[2018-01-04] MEDS: PIPERACILLIN SODIUM/TAZOBACTAM 3.375 GM in NORMAL SALINE 100 ML IV SCH ×3 (00:33→12:46)
[2018-01-04] MEDS: LEVOTHYROXINE SODIUM 0.075 MG TABLET PO SCH (07:35)
[2018-01-04] MEDS: ENOXAPARIN SODIUM INJ 40 MG/0.4 ML DISP.SYRIN SUBCUT SCH (10:33)
[2018-01-04] MEDS: HYDROCHLOROTHIAZIDE 12.5 MG TABLET PO SCH (10:34)
[2018-01-04] MEDS: AMLODIPINE BESYLATE 5 MG TABLET PO SCH (10:34)
[2018-01-04] MEDS: GUAIFENESIN 600 MG TABLET.SA PO SCH (10:34)
[2018-01-04] MEDS: CALCIUM CARBONATE 500 MG TABLET PO SCH (10:35)
[2018-01-04] MEDS: SENNOSIDES/DOCUSATE 8.6-50 MG 1 EACH TABLET PO SCH (10:35)
[2018-01-04] MEDS: LISINOPRIL 10 MG TABLET PO SCH (13:26)
[2018-01-04 13:33] VITALS: BP 132/59
[2018-01-04] MEDS: MULTIVITAMIN TABLET PO SCH (13:45)
--- NOTE | 2018-01-04 20:02 | PDOC DISCHARGE SUMMARY ---
General - Admit/Disc Date/PCP Admission Date/Primary Care Provider: 12/29/17 01:01 Dr. Ivy Urologist: Dr. Chen Discharge Date: 01/04/18 - Discharge Diagnosis (1) Pneumonia Is this a current diagnosis for this admission?: Yes Summary: Concerns for gram negatives. She received IV Zosyn here in the hospital. She will complete a course of p.o. Augmentin. She is greatly improved. (2) Pleural effusion Is this a current diagnosis for this admission?: Yes Summary: These are small likely due to underlying pneumonia. She should have a repeat chest x-ray to document clearing (3) Urinary tract infection Is this a current diagnosis for this admission?: Yes Summary: Urine culture was actually unremarkable. She did have evidence of a urinary tract infection as an outpatient and had a recent procedure at [facility]. She was adequately covered with Zosyn. (4) Anemia Is this a current diagnosis for this admission?: Yes Summary: She was transfused 2 units of packed red blood cells. 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 (5) Hypertension Is this a current diagnosis for this admission?: Yes Summary: Stable (6) Bladder cancer Is this a current diagnosis for this admission?: Yes Summary: She recently had a urostomy placed. She will follow-up with Dr. Chen as an outpatient (7) Hypothyroidism Is this a current diagnosis for this admission?: Yes Summary: Continue Synthroid (8) Obesity (BMI 35.0-39.9 without comorbidity) Is this a current diagnosis for this admission?: Yes Summary: Dietary discretion is advised (9) Hyponatremia Is this a current diagnosis for this admission?: Yes Summary: Likely due to underlying infection. Resolved (10) Positive blood culture Is this a current diagnosis for this admission?: Yes Summary: 1 out of 2 blood cultures positive for gram-positive cocci. This was a contaminant. - Additional Information Resuscitation Status: Full Code Discharge Diet: As Tolerated, Regular Discharge Activity: Activity As Tolerated, Balance Activity w/Rest, Supervised Activity Prescriptions: Amox Tr/Potassium Clavulanate [Augmentin 875-125 mg Tablet] 1 tab PO BID #14 tablet Guaifenesin [Mucinex Sr 600 mg Tablet.sa] 600 mg PO Q12 #10 tablet.sa Lisinopril/Hydrochlorothiazide [Zestoretic 10-12.5 mg Tablet] 1 each PO BID #60 tablet Home Medications: Amlodipine Besylate [Norvasc 5 mg Tablet] 5 mg PO DAILY 04/08/11 Levothyroxine Sodium [Levoxyl] 0.075 mcg PO DAILY 04/08/11 Sennosides/Docusate 8.6-50 mg [Senna Plus Tablet] 1 tab PO BID 04/08/11 Calcium Carbonate [Calcium] 500 mg PO DAILY 02/15/17 Multivitamin [Multivitamins] 1 each PO DAILY 02/15/17 Enoxaparin Sodium [Lovenox Inj 40 mg/0.4 ml Disp.syrin] 40 mg SUBCUT DAILY 12/29 Amox Tr/Potassium Clavulanate [Augmentin 875-125 mg Tablet] 1 tab PO BID #14 tablet 01/04/18 Atorvastatin Calcium [Lipitor 40 mg Tablet] 40 mg PO QHS tablet 01/04/18 Guaifenesin [Mucinex Sr 600 mg Tablet.sa] 600 mg PO Q12 #10 tablet.sa 01/04/18 Lisinopril/Hydrochlorothiazide [Zestoretic 10-12.5 mg Tablet] 1 each PO BID #60 tablet 01/04/18 History of Present Illness History of Present Illness: MEAGAN ZUNIGA is a 82 year old female who presented to the emergency room with increased shortness of breath Hospital Course Hospital Course: The patient is an 82-year-old female who recently was seen at [facility]. She has known bladder cancer and recently had a bladder resection and diverting ileal conduit at [facility]. She was hospitalized at their facility from December 13 - December 17, 2017. She had a stent removal on December 21 and was noted to be hypotensive with electrolyte disturbances. She was admitted again and discharged on 12/24/2017. The patient had been doing fairly well. However she then began to develop a cough. In the emergency room she developed increasing shortness of breath and presented to the emergency room. Chest x- ray revealed a right upper lobe density. She was admitted to the hospital and started on broad-spectrum IV antibiotics. Her initial urinalysis was concerning for infection and was nitrite positive however her urine culture remained negative. Over the course of the hospitalization the patient has improved. She has been transitioned over to oral antibiotics and is doing quite well. At this point it is felt that she can safely be discharged home with close outpatient follow-up. I am going to get her an appointment to follow -up with her local urologist as well as her primary care physician. She is to keep her follow-up appointment at [facility]. She will be discharged home today in stable condition. Physical Exam Vital Signs: Temp Pulse Resp BP Pulse Ox 98.4 F 79 16 132/59 H 92 01/04/18 13:29 01/04/18 13:29 01/04/18 13:29 01/04/18 13:29 01/04/18 13:29 Intake & Output 01/03/18 01/04/18 01/05/18 06:59 06:59 06:59 Intake Total 3461 2141 200 Output Total 4475 2100 Balance -1014 41 200 Weight 84.2 kg 84.3 kg General appearance: PRESENT: no acute distress Head exam: PRESENT: atraumatic, normocephalic Eye exam: PRESENT: conjunctiva pink, EOMI, PERRLA. ABSENT: scleral icterus Mouth exam: PRESENT: moist, tongue midline Neck exam: ABSENT: carotid bruit, JVD, lymphadenopathy, thyromegaly Respiratory exam: PRESENT: clear to auscultation susy. ABSENT: rales, rhonchi, wheezes Cardiovascular exam: PRESENT: RRR. ABSENT: diastolic murmur, rubs, systolic murmur GI/Abdominal exam: PRESENT: other - She has well-healed midline incision. She has an ileal conduit with bag in place with clear yellow urine in the bag. Rectal exam: PRESENT: deferred Extremities exam: PRESENT: full ROM. ABSENT: calf tenderness, clubbing, pedal edema Musculoskeletal exam: PRESENT: ambulatory Neurological exam: PRESENT: alert, awake, oriented to person, oriented to place , oriented to time, oriented to situation, CN II-XII grossly intact. ABSENT: motor sensory deficit Psychiatric exam: PRESENT: appropriate affect, normal mood. ABSENT: homicidal ideation, suicidal ideation Skin exam: PRESENT: dry, intact, warm. ABSENT: cyanosis, rash Results Laboratory Results: 01/03/18 04:35 01/03/18 04:35 01/03/18 04:35 NT-Pro-B Natriuret Pep 772 H Impressions: Chest X-Ray 12/28/17 16:29 IMPRESSION: 1. FAINT DENSITY IN THE RIGHT UPPER LOBE, POSSIBLY ARTIFACT DUE TO OVERLYING TISSUE. CANNOT EXCLUDE UNDERLYING PARENCHYMAL LESION. MAY CONSIDER FOLLOW-UP CT OF THE CHEST FOR MORE COMPLETE EVALUATION. 2. LARGE HIATAL HERNIA WITH INTRATHORACIC STOMACH. Chest CT 12/30/17 00:00 IMPRESSION: 1. MODERATE RIGHT PLEURAL EFFUSION AND SMALL LEFT PLEURAL EFFUSION. 2. 1 CM SUBPLEURAL NODULE IN THE RIGHT LOWER LOBE. 3. 2 CM FAINT AREA OF GROUND-GLASS OPACITY IN THE RIGHT UPPER LOBE, NONSPECIFIC. THIS COULD BE DUE TO ATELECTASIS, PNEUMONITIS, OR POTENTIALLY INFECTION. 4. LARGE HIATAL HERNIA WITH INTRATHORACIC STOMACH. 5. SMALL AMOUNT OF ASCITES IN THE UPPER ABDOMEN. 6. POSSIBLE LEFT ADRENAL NODULE. Chest/Abdomen CTA 01/03/18 00:00 IMPRESSION: 1. Stable right lower lobe pulmonary nodule. Stable limited area of ground-glass opacification in the right upper lobe. Moderate right pleural effusion. Minimal left pleural effusion. 2. There is no evidence of pulmonary embolus. 3. Large hiatal hernia with most of the stomach above the diaphragm. Qualifiers - * PATIENT BEING DISCHARGED WITH ANY OF THE FOLLOWING DIAGNOSIS: No Plan Time Spent: Greater than 30 Minutes
== END 2018-01-04 14:00 | disposition home health service (06) | DRG 194 ==
LOC: ER 15:18 → EH 12-29 01:01 → 4S 12-29 15:21
PROVIDERS: ADMIT Family Medicine; ATTEND Family Medicine
PROC: 3E0F73Z Introduction of Anti-inflammatory into Respiratory Tract, Via Natural or Artificial Opening (ICD-10-PCS; 2017-12-29)
PROC: 30233N1 Transfusion of Nonautologous Red Blood Cells into Peripheral Vein, Percutaneous Approach (ICD-10-PCS; principal; 2017-12-31)
DX: J18.1 Lobar pneumonia, unspecified organism (principal); N39.0 Urinary tract infection, site not specified; E87.1 Hypo-osmolality and hyponatremia; I10 Essential (primary) hypertension; C67.9 Malignant neoplasm of bladder, unspecified; E03.9 Hypothyroidism, unspecified; E66.9 Obesity, unspecified; K44.9 Diaphragmatic hernia without obstruction or gangrene; E05.90 Thyrotoxicosis, unspecified without thyrotoxic crisis or storm; D63.0 Anemia in neoplastic disease; R91.1 Solitary pulmonary nodule; M19.90 Unspecified osteoarthritis, unspecified site; E78.00 Pure hypercholesterolemia, unspecified; Z68.36 Body mass index [BMI] 36.0-36.9, adult; Z79.899 Other long term (current) drug therapy; Z90.6 Acquired absence of other parts of urinary tract; Z90.710 Acquired absence of both cervix and uterus; Z88.6 Allergy status to analgesic agent; Z93.2 Ileostomy status; Z82.49 Family history of ischemic heart disease and other diseases of the circulatory system; Z82.3 Family history of stroke; Z80.9 Family history of malignant neoplasm, unspecified
CPT/HCPCS: 36415; 36430; 71046; 71260; 71275; 80048; 80053; 81001; 82272; 82607; 82728; 82746; 83540; 83550; 83605; 83735; 83880; 84100; 84443; 85025; 85027; 85045; 85379; 86850; 86900; 86901; 86920; 87040; 87070; 87077; 87186; 87205; 96361; 96365; 96368; 99285; J0295; J0456; J0696; J1439; J1650; J2405; J2543; J7030; J7050; P9016